=== PATIENT | male | born 1945 | race Caucasian/White ===

== ENCOUNTER 2022-07-08 15:41 | Inpatient (IN) | payer MEDICARE, MEDICAID ==
[~2022-07-08] VITALS: Ht 182.9 cm; Wt 69.9 kg
[2022-07-08] MEDS ORDERED: cefTRIAXone 1,000 MG in DEXT 5% MINI-BAG PLUS 50 ML IV ONE (15:50)
[2022-07-08] MEDS ORDERED: ACETAMINOPHEN 650 MG SUPP RC ONE (15:50)
[2022-07-08 15:57] VITALS: BP 127/56
--- NOTE | 2022-07-08 16:30 | NUR ---
77M BIBA from [facility] with c/o of hypoxia today. Per EMS, pt was satting at 88% on 40 FIO2. Upon arrival, pt temp of 103, labored breathing and tachypneic. Dr. Goldsmith made aware. Pt changed into gown, placed on bedside monitor, RT at bedside upon arrival.
[2022-07-08 16:43] LABS: BASOPHILS % (AUTO) 0.1 % (0.0-2.0); EOSINOPHILS % (AUTO) 0.3 % (0.0-4.0); HEMATOCRIT 27.9 % (36-52); HEMOGLOBIN 8.7 g/dL (12.0-18.0); LYMPHOCYTES # (AUTO) 0.4 K/uL (2.0-11.5); LYMPHOCYTES % (AUTO) 2.3 % (20.5-51.1); MEAN CORPUSCULAR HEMOGLOBIN 28 pg (27-31); MEAN CORPUSCULAR HGB CONC 31 g/dL (33-37); MEAN CORPUSCULAR VOLUME 89.5 fL (80-94); MONOCYTES # (AUTO) 0.7 K/uL (0.8-1.0); MONOCYTES % (AUTO) 4.4 % (1.7-9.3); NEUTROPHILS # (AUTO) 15.2 K/uL (1.8-7.7); NEUTROPHILS % (AUTO) 92.9 % (42.2-75.2); PLATELET COUNT (AUTO) 382 K/uL (140-450); RED BLOOD CELL COUNT(AUTO) 3.12 MIL/uL (4.20-6.10); RED CELL DISTRIBUTION WIDTH 17.6 % (11.6-13.7)
--- NOTE | 2022-07-08 16:45 | NUR ---
#18 FR Yo catheter with 10 ml utilizing sterile technique. No return of urine noted. Bedside drainage bag placed below level of bladder. Pt tolerated procedure well.
[2022-07-08] MEDS ORDERED: cefTRIAXone 1,000 MG VIAL ONE (16:52)
[2022-07-08 17:01] LABS: WHITE BLOOD COUNT (AUTO) 16.4 K/uL (4.8-10.8)
[2022-07-08 17:32] VITALS: BP 91/52
[2022-07-08 17:37] LABS: ALBUMIN 2.6 g/dL (3.4-5.0); ANION GAP 13.8 (8-16); ASPARTATE AMINOTRANSFERASE 22 U/L (15-37); CARBON DIOXIDE 26.4 mmol/L (21-32); CHLORIDE 103 mmol/L (98-107); CREATININE 1.2 mg/dL (0.6-1.3); GLUCOSE 146 mg/dL (74-106); POTASSIUM 5.2 mmol/L (3.5-5.1); SODIUM SERUM 138 mmol/L (136-145); TOTAL BILIRUBIN 0.4 mg/dL (0.0-1.0); UREA NITROGEN, BLOOD 41 mg/dL (7-18)
[2022-07-08] MEDS ORDERED: DOCUSATE SODIUM 100 MG GELCAP PO PRN (17:45)
[2022-07-08] MEDS ORDERED: ONDANSETRON 4 MG/2 ML VIAL IVP PRN (17:45)
[2022-07-08] MEDS ORDERED: ZOLPIDEM 10 MG TAB PO PRN (17:45)
[2022-07-08] MEDS ORDERED: SODIUM ZIRCONIUM CYCLOSILICATE 10 GM POWD.PACK PO ONE (17:45)
[2022-07-08] MEDS ORDERED: POTASSIUM CHLORIDE 10 MEQ TABER PO PRN (17:45)
[2022-07-08] MEDS ORDERED: MAG SULF 2000 MG/WATER PREMIX 50 ML IV PRN (17:45)
[2022-07-08] MEDS ORDERED: DEXTROSE 50% 50 ML SYR IVP PRN (17:50)
[2022-07-08] MEDS ORDERED: INSULIN LISPRO SLIDING SCALE 100 UNITS/ML VIAL SUBQ PRN (17:50)
[2022-07-08] MEDS ORDERED: NACL 0.9% 1,000 ML IV ONE (18:55)
[2022-07-08] MEDS ORDERED: DOCU50LI8 GT (19:26)
[2022-07-08] MEDS ORDERED: LISI5TAB18 GT (19:26)
[2022-07-08] MEDS ORDERED: AMIO100T3 GT (19:26)
[2022-07-08] MEDS ORDERED: METO25TA GT (19:26)
[2022-07-08] MEDS ORDERED: ACET-1182 GT (19:26)
[2022-07-08] MEDS ORDERED: LORA-476 GT (19:26)
[2022-07-08] MEDS ORDERED: FAMO20TA13 GT (19:26)
--- NOTE | 2022-07-08 19:30 | NUR ---
ASSUMED CARE OF PT AT THIS TIME. PT IN POSITION OF COMFORT. NO S/S OF DISTRESS NOTED. PT BEING ADMITTED TO ICU. AWAITING TO GIVE REPORT. PER ORDERS PT CURRENTLY GETTING FLUID BOLUS FOR B/P. RE-EVALUATE AFTER BOLUS FOR LEVOPHED. PT ON VENTILATOR AND TRACH. VSS. SEE ASSESSMENTS. WILL CONTINUE TO MONITOR.
[2022-07-08 19:35] VITALS: BP 85/40
--- NOTE | 2022-07-08 20:53 | NUR ---
REPORT CALLED TO HUGO HUNTER WITH FULL RETURNED VERBAL UNDERSTANDING. PT GOING TO ICU 3
--- NOTE | 2022-07-08 20:55 | NUR ---
TRANSPORTED PATIENT ON VENTILATOR WITH AMBU BAG FROM ER TO ICU BED 3. ONCE IN ICU PLUGGED PATIENTS VENT BAG INTO RED OUTLET, WITH AIR AND O2 CONNECTED AT THE FLOWMETER. PATIENT STABLE AT TIME OF TRANSPORT SATING 98%.
--- NOTE | 2022-07-08 21:00 | NUR ---
Patient will be admitted to [facility]. Admited to ICU. Will go to room 3. Belongings list completed. Report to HIMA HUNTER.
[2022-07-08 21:10] LABS: APPEARANCE,URINE HAZY (CLEAR); BILIRUBIN,URINE NEGATIVE (NEGATIVE); BLOOD, URINE 1+ (NEGATIVE); COLOR,URINE YELLOW (YELLOW); LEUKOCYTE ESTERASE ,URINE 3+ (NEGATIVE); NITRITE, URINE NEGATIVE (NEGATIVE); PH,URINE >=9.0 (5.0-9.0); UGLUCOSE NEGATIVE (NEGATIVE)
--- NOTE | 2022-07-08 21:10 | NUR ---
RECEIVED VIVIANA VANESSA ACCOMPANIED PER RESPIRATORY THERAPIST, AN RN AND AN EMT. PT IS NON RESPONSIVE AND UNABLE TO ASSISTIN HIS TRANSFER TO THE ICU BED. PT IS VERY RIGID AND HE IS CONTRACTED ON GIL UPPER ARMS.PT IS TRACH TO VENT WITH CURRENT SETTINGS FIO2 100%, TV 350,RATE 12 AND PEEP 5.HE HAS A PEG TUBE IN P;EDWIN BUT NO FEEDING. HE HAS A JIMENES CATH 18 FR; INSERTED IN THE ED. HE HAS BEEN CONNECTED TO THE BEDSIDE MONITOR AND HIS VITALS [id number]/76,,P 66, [id number]% AND RESP 16. PT HAS 2 IV ACCESSES IN HANDS GIL. ONE 20 GAUGE IN THE RIGHT HAND AND A 22GAUGE IN THE LEFT . HE'S GIVEN A COMPLETE BATH AND GOWN CHANGED
[2022-07-08 21:28] LABS: WBC,URINE 20-60 /HPF (0-5)
[2022-07-08 21:29] LABS: TRIPLE PHOSPHATE CRYSTAL,UR 0-10 /HPF (None Seen)
[2022-07-08 21:30] VITALS: BP 98/41
[2022-07-08 22:00] VITALS: BP 104/54
[2022-07-08] MEDS: PIPERACILLIN/TAZOBACTAM 2.25 GM in DEXTROSE 5% 50 ML IV SCH (22:00)
[2022-07-08] MEDS: BLOOD GLUCOSE MONITORING 1 DEV DEV FS SCH (22:00)
[2022-07-08] MEDS: ACETAMINOPHEN 325 MG TAB PO PRN (22:09)
[2022-07-08] MEDS ORDERED: PIPERACILLIN/TAZOBACTAM 2.25 GM VIAL IV ONE (22:11)
[2022-07-08 23:00] VITALS: BP 93/51
[2022-07-09] VITALS (27 sets, daily range): BP systolic 82–167; BP diastolic 41–92
[2022-07-09] MEDS ORDERED: AMIODARONE 150 MG in DEXTROSE 5% 100 ML IV ONE (04:40)
--- NOTE | 2022-07-09 04:40 | NUR ---
RECEIVED CALL FORM [facility] INQUIRING WHATS GOING ON WITH MR. BENITEZ. I REPLIED ' I JUST SUCTIONED HIIM AND GAVE HIM ORAL CARE. SHE SAID HE'S IN VTACH. CALLED A CODE PT LOST HIS PULSE. RT AT THE BEDSIDE PLACED PT ON THE BACK BOAR AND ADMINISTERED 6COMPRESSION. PREPARING TO SHOCK PT , BUT HE REGAINED HIS PULSE. HE REMAINS IN V TACH WITH AF. DR. BUTLER FROM ER REPONDED TO THE CODE AND BERNARD MURPHY RN. SHE PLACED ANOTHER IV IN THE PT LOWER WRIST ON THE RIGHT. PT CONTINUED IN V TACH BUT WITH A PULSE. HE WAS GIVEN A BOLUS OF AMIODARONE.IVP. LABS WERE CHECKED AND PT WAS ALSO GIEN 15 MG CARDIZEM IVP. A AMIODARONE GTT WAS PREPARED AND HUNG. AT O600 PT HEART DROP TO 50 ;AMIODARONE WAS DC'D. CALL PLACED TO DR. GUNN. DR GUNN CALLED BACK AMD SAID TO CONTINUE THE AMIODARONE BECAUSE THE HEART RATE WENT UP TO 97. His CT of the head reveals negative CT of the brain. Hand x-ray shows worsening right hand cellulitis with proximal extension to the wrist and distal forearm, advanced osteoarthrosis of fifth DIP joint and early second to fifth interphalangeal arthrosis. Chest x-ray reveals mild right lung base, patchy opacity, which may represent atelectasis versus infiltrate. IMPRESSION AND PLAN: A 50-year-old male, denies IV drug abuse or injecting himself, no reported diabetes, presents now with a right dorsum hand abscess with rising leukocytosis. The patient is on IV antibiotics and no seizures at the moment. The x-rays of the hand noted. Initially, I had recommended the patient be transferred to a hand surgeon, but as usual, this is a complicated transfer process and this is a surgical emergency situation. Although I explained to the patient I am not a hand surgeon, I did offer incision and drainage of the right hand. I would still recommend transfer to a higher level of care at the soonest possibility, but for now, I am willing to incise and drainage the hand to control sepsis for now. Risks, benefits and alternatives of the procedure explained and all questions answered. They have been unable to get in a peripheral IV on the patient as well too; if necessary, I have offered a central line placement as well. Unable to get a PICC line in a timely fashion and ICU nurses have tried individually to place a peripheral IV in the left hand unsuccessfully. Risks, benefits and alternatives of the surgery were explained and all questions answered. Addendum: 07/10/22 at 1936 by Agency 02 RN RN my note on patient stopped at the heart rate went up to 97.the bottom half of the note was already on the computer and was attached ro my note when I relocated my note after losing it multiple times. ERIC.
--- NOTE | 2022-07-09 04:40 | NUR ---
DURING ROUNTINE VENT CHECK OF PT, PT ENTERED VTACH, AND BECAME PULSELESS, I PRESSED THE CODE BLUE BUTTON, AND STARTED COMPRESSIONS, AFTER 30 SECS, THE PT BEGAN TO MOVE AND ROSC WAS ACHIEVED DR. BUTLER ARRIVED,
[2022-07-09] MEDS ORDERED: AMIODARONE 450 MG in DEXTROSE 5% 250 ML IV SCH (04:41)
[2022-07-09] MEDS ORDERED: AMIODARONE 150 MG/3 ML VIAL IV ONE ×2 (04:51→04:59)
[2022-07-09] MEDS ORDERED: AMIODARONE 450 MG/9 ML VIAL IV ONE (04:59)
[2022-07-09] MEDS: PIPERACILLIN/TAZOBACTAM 2.25 GM in DEXTROSE 5% 50 ML IV SCH ×3 (05:00→21:03)
--- NOTE | 2022-07-09 05:00 | NUR ---
TEXT MS SENT TO DR. GARCIA ABOUT PT'S CONDITION. MADE AN ATTEMPT TO CONTACT FRANCISCO RAI BUT THE MAIL BOX WAS FULL.
[2022-07-09] MEDS ORDERED: DILTIAZEM 25 MG/5 ML VIAL IVP ONE (05:06)
[2022-07-09] MEDS ORDERED: PIPERACILLIN/TAZOBACTAM 2.25 GM VIAL IV ONE (05:26)
[2022-07-09] MEDS ORDERED: PHENYLEPHRINE 10 MG/ML VIAL ONE (05:32)
[2022-07-09 06:27] LABS: HEMATOCRIT 26.2 % (36-52); HEMOGLOBIN 8.3 g/dL (12.0-18.0); MEAN CORPUSCULAR HEMOGLOBIN 29 pg (27-31); MEAN CORPUSCULAR HGB CONC 32 g/dL (33-37); MEAN CORPUSCULAR VOLUME 90.4 fL (80-94); PLATELET COUNT (AUTO) 360 K/uL (140-450); RED CELL DISTRIBUTION WIDTH 17.4 % (11.6-13.7)
--- NOTE | 2022-07-09 07:15 | NUR ---
RECEIVED BEDSIDE REPORT FROM METAL TANK BUILDER AAMIR RN. PT IS SLEEPING. A FIB. TRACH TO VENT A/C PRVC 100%, VT 300, RR 16, PEEP 5. PERIPHERAL IV TO RT WRIST 20G AND RT HAND 22G, RUNNING AMIODARONE @ 1.0 MG/MIN, IVAN AT 100MCG/MIN. JIMENES IN PLACE, URINE CLEAR AND BAKARI. G TUBE IN PLACE, CLAMPED. SKIN SEE WOUND ASSESSMENT. BE TO LOWEST POSITION, HOB ELEVATED, CALL LIGHT WITHIN REACH, WILL CONTINUE TO MONITOR.
--- NOTE | 2022-07-09 07:30 | NUR ---
REPORT GIVEN TO JENI FOR CONTINUITY OF CARE.
[2022-07-09] MEDS: BLOOD GLUCOSE MONITORING 1 DEV DEV FS SCH ×4 (08:01→21:02)
[2022-07-09 08:25] LABS: LYMPHOCYTES % (MANUAL) 11 % (20-46); MONOCYTES % (MANUAL) 3 % (5-12)
--- NOTE | 2022-07-09 09:00 | NUR ---
PATIENT HAS BEEN SCREENED AND CATEGORIZED HIGH NUTRITION RISK. PATIENT WILL BE SEEN WITHIN 1-2 DAYS OF ADMISSION. 07/08/22-07/10/[address] REFERRAL RECEIVED FOR PRESSURE INJURY AND DIABETES EDUCATION
--- NOTE | 2022-07-09 09:00 | NUR ---
DR JOSE VAZQUEZ AT BEDSIDE. UPDATED PT INFORMATION. ORDERED PICC LINE INSERTION, D5 NS @100 MLS/HR, VANCOMYCIN.
[2022-07-09] MEDS ORDERED: VANCOMYCIN PER PHARMACY MC PRN (09:05)
[2022-07-09] MEDS: PHENYLEPHRINE 20 MG in NACL 0.9% 250 ML IV PRN ×3 (09:26→16:53)
[2022-07-09] MEDS: DEXT 5% /NACL 0.9% 1,000 ML IV SCH ×2 (09:29→18:59)
--- NOTE | 2022-07-09 09:50 | NUR ---
DR ROME WANTS TO START WEANING FIO2. PT IS NOT ON 80% SATING 98%. WILL CONTINUE TO WEAN AND MONITOR. NO DISTRESS NOTED
--- NOTE | 2022-07-09 10:00 | NUR ---
DR WILD VAZQUEZ AT BEDSIDE. UPDATED PT INFORMATION. ORDERED STARTED TUBE FEEDING PER DIETITIAN RECOMMENDATION.
[2022-07-09 10:07] LABS: ANION GAP 10.6 (8-16); CARBON DIOXIDE 28.6 mmol/L (21-32); CHLORIDE 106 mmol/L (98-107); CREATININE 0.9 mg/dL (0.6-1.3); GLUCOSE 87 mg/dL (74-106); POTASSIUM 4.2 mmol/L (3.5-5.1); SODIUM SERUM 141 mmol/L (136-145); UREA NITROGEN, BLOOD 34 mg/dL (7-18)
--- NOTE | 2022-07-09 10:25 | NUR ---
TO GET THE CONSENT FOR PICC LINE INSERTION. CALLED TWICE INTERACTIVE MEDIA DIRECTOR BASED ON THE FACE SHEET. FRANCISCO RAI / [phone]. NO ONE ANSWERED CALL. VOICE BOX IS FULL, UNABLE TO LEAVE THE MESSAGE. HAD DR ROME AND DR GARCIA SIGN THE PICC LINE INSERTION CONSENT.
--- NOTE | 2022-07-09 10:39 | NUR ---
07/09/21 RD INITIAL ASSESSMENT COMPLETED.PLEASE REFER TO NUTRITION ASSESSMENT UNDER CARE ACTIVITY FOR ESTIMATED NUTRITIONAL NEEDS. 1. RECOMMEND GLUCERNA 1.2 SOFI WITH A GOAL RATE OF 60 ML/HR WITH LAWRENCE BID FOR WOUND HEALING. -START AT 20 ML/HR AND INCREASE BY 20 ML Q4H UNTIL GOAL RATE IS REACHED. -FWF 180 ML Q6H OR PER MD. THIS WILL PROVIDE 1440 ML VOLUME, 1728 KCAL, AND 86.4 GRAMS OF PROTEIN. WITH LAWRENCE BID (160 KCAL, 5 GRAMS PRO), THIS WILL MEET 100% OF ESTIMATED ENERGY NEEDS; ADEQUATE. 2. MONITOR NPO STATUS. 3. RD TO FOLLOW-UP 2-3 DAYS, HIGH RISK MILLIE REDDY RD
[2022-07-09] MEDS: VANCOMYCIN HCL 1.25 GM in DEXTROSE 5% 250 ML IV SCH (10:59)
--- NOTE | 2022-07-09 13:54 | NUR ---
RECEIVED ON A OleryAPE R860 VENTILATOR PLUGGED INTO RED OUTLET TOLERATING WELL WITHOUT ADVERSE REACTIONS NOTED TO A ANDREYLEY #6 AIRWAY SECURED WITH A TRACH TIE CUFF PRESSURE CHECKED NOTED AMBU BAG AT BEDSIDE GOOD CHEST RISE DEEP TRACHEAL SUCTION X 3 FOR COPIOUS SEMI THICK TO THIN YELLOW SECRETIONS AIRWAY PATENT INCREASED MECHANICAL Vt TO 475ml (470ml=6ml/kg) REVIEWED B/P SATURATION 100% ON FIO2 OF 80% PEEP 5cmH2O TITRATED FIO2 TO 70% INCREASED PEEP TO 7cmH20; WILL TREND FIO2 AND PEEP TO ARDS PROTOCOL
--- NOTE | 2022-07-09 17:13 | NUR ---
STABLE GOOD CHEST RISE DEEP TRACHEAL SUCTION X 2 FOR COPIOUS THIN YELLOW SECRETIONS AIRWAY PATENT SATURATION 99% ON FIO2 OF 70% PEEP 7cmH2O TITRATED FIO2 TO 60% INCREASED PEEP TO [id number] (ARDS PROTOCOL) JENI/RN NOTIFIED
--- NOTE | 2022-07-09 18:05 | NUR ---
BEDSIDE PICC LINE INSERTED VIA PICC LINE NURSE PER MD ORDER. PT TOLERATED WELL. CXR CONFIRMED PLACEMENT.
--- NOTE | 2022-07-09 19:27 | NUR ---
ENDORSED TO MARKET BASKET MAKER BERNARD HUNTER FOR CONTINUITY OF CARE. ALL QUESTIONS ANSWERED.
--- NOTE | 2022-07-09 19:30 | NUR ---
TRANSFER OF CARE FROM DAY SHIFT, REPORT RECEIVED FROM JENI Ribeiro RN. PATIENT RECIEVED IN BED, AWAKE, ALERT AND MOVING LOWER EXTREMITIES. PATIENT DOES NOT APPEAR TO BE IN DISTRESS. PATIENT HAS TRACH AND DEPENDENT ON VENT FOR RESPIRATORY SUPPORT. CURRENT VENT SETTINGS ARE: AC/PRVC, FIO2=60, HZ=039, RATE=12, PEEP=5. PATIENT HAS THE FOLLOWING MEDICATIONS CURRENTLY INFUSING: AMIODARONE 450MG AT A RATE OF 0.5MG/HR, IVAN-SYNEPHRINE 20MG AT A RATE OF 50MG/MIN AND IV FLUIDS (D5NS) AT A RATE OF 100 ML/HR . CURRENT VITAL SIGNS AT START OF SHIFT: TEMP=99.1F, HR=72, R=15, O2 YZM=7371, BC=104/62. PATIENT HAS G-TUBE AND IS CURRENTLY ON TUBE FEEDING, GLUCERNA 1.2 AT A RATE OF 40ML/HR. HAS JIMENES IN PLACE. WILL CONTINUE TO MONITOR PATIENT.
--- NOTE | 2022-07-09 20:00 | NUR ---
RT AT BEDSIDE
--- NOTE | 2022-07-09 21:45 | NUR ---
DR. MARTINEZ (INFECTIOUS DISEASE) AT BEDSIDE, CONTINUE CURRENT TREATMENT PLAN, NEEDS SPUTUM CULTURE
--- NOTE | 2022-07-09 23:20 | NUR ---
RT AT BEDSIDE
[2022-07-09] MEDS: LORazepam 2 MG/ML VIAL IVP PRN (23:33)
--- NOTE | 2022-07-09 23:45 | NUR ---
PHONE CALL PLACED TO MD FOR ORDER FOR SEDATION; PATIENT WITH AFIB, TACHYCARDIA, TACHYPNEA.
--- NOTE | 2022-07-09 23:46 | NUR ---
RECEIVED CALL BACK FROM DR. ROME, NEW ORDERS FOR PROPOFOL AND FENTANYL.
[2022-07-09] MEDS ORDERED: PROPOFOL 1000 MG/100 ML PREMIX 100 ML IV ONE (23:47)
[2022-07-09] MEDS ORDERED: PROPOFOL 1000 MG/100 ML PREMIX 100 ML IV PRN (23:50)
[2022-07-10] VITALS (31 sets, daily range): BP systolic 81–153; BP diastolic 38–92
--- NOTE | 2022-07-10 | NUR ---
DR. MARTINEZ AT THE BEDSIDE SSESSING PT.
[2022-07-10] MEDS ORDERED: fentaNYL citrate 0.05 MG/ML VIAL ONE ×2 (00:22→00:26)
[2022-07-10] MEDS: fentaNYL citrate 1 MG in NACL 0.9% 80 ML IV PRN ×2 (00:44→21:16)
--- NOTE | 2022-07-10 04:38 | NUR ---
RT AT BEDSIDE, SETTINGS TO VENT CHANGED; PATIENT NOW WITH PEEP OF 8
[2022-07-10] MEDS ORDERED: AMIODARONE 450 MG/9 ML VIAL IV ONE (04:42)
[2022-07-10] MEDS: PIPERACILLIN/TAZOBACTAM 2.25 GM in DEXTROSE 5% 50 ML IV SCH ×3 (04:59→21:00)
[2022-07-10] MEDS: DEXT 5% /NACL 0.9% 1,000 ML IV SCH (05:35)
[2022-07-10] MEDS: PHENYLEPHRINE 20 MG in NACL 0.9% 250 ML IV PRN (05:39)
[2022-07-10 06:10] LABS: ANION GAP 8.5 (8-16); CARBON DIOXIDE 28.1 mmol/L (21-32); CHLORIDE 112 mmol/L (98-107); CREATININE 0.7 mg/dL (0.6-1.3); GLUCOSE 140 mg/dL (74-106); POTASSIUM 3.6 mmol/L (3.5-5.1); SODIUM SERUM 145 mmol/L (136-145); UREA NITROGEN, BLOOD 27 mg/dL (7-18)
[2022-07-10] MEDS: BLOOD GLUCOSE MONITORING 1 DEV DEV FS SCH ×4 (06:52→23:56)
--- NOTE | 2022-07-10 07:05 | NUR ---
NOTIFIED DR. ROME REGARDING AMIODARONE DRIP INFUSED FOR 24 HOURS. NEW ORDER TO DISCONTINUE DRIP.
--- NOTE | 2022-07-10 07:15 | NUR ---
TRANSFER OF CARE TO DAY SHIFT, REPORT ENDORSED TO DALE OSORIO
[2022-07-10 07:34] LABS: HEMOGLOBIN 7.1 g/dL (12.0-18.0); RED BLOOD CELL COUNT(AUTO) 2.49 MIL/uL (4.20-6.10)
--- NOTE | 2022-07-10 07:45 | NUR ---
RECEIVED PT SEDATED, TRACH TO VENT SETTINGS AC PRVC TV 475 RATE 12 PEEP 8 FIO2@ 60%. SINUS ANIBAL ON MONITOR. GTUBE INTACT AND PATENT INFUSING GLUCERNA 1.2@60ML/HR WITH FWF 180ML Q6HR. JIMENES CATHETER INTACT AND DRAINING TO BSD. PICC LINE ON RIGHT UPPER ARM INTACT AND PATENT INFUSING PROPOFOL @6MCG/KG/HR, FENTANYL@0.5MCG/KG/HR, IVAN-SYNEPHRINE@50MCG/MIN, AND D5NS@100ML/HR. PERIPHERAL IV ON RIGHT WRIST 20 GAUGE SALINE LOCKED. SAFETY PRECAUTIONS IN PLACE.
[2022-07-10 07:55] LABS: BASOPHILS % (AUTO) 0.2 % (0.0-2.0); EOSINOPHILS % (AUTO) 0.2 % (0.0-4.0); HEMATOCRIT 22.6 % (36-52); LYMPHOCYTES # (AUTO) 0.7 K/uL (2.0-11.5); LYMPHOCYTES % (AUTO) 6.8 % (20.5-51.1); MEAN CORPUSCULAR HEMOGLOBIN 28 pg (27-31); MEAN CORPUSCULAR HGB CONC 31 g/dL (33-37); MEAN CORPUSCULAR VOLUME 90.7 fL (80-94); MONOCYTES % (AUTO) 9.1 % (1.7-9.3); NEUTROPHILS # (AUTO) 9.3 K/uL (1.8-7.7); NEUTROPHILS % (AUTO) 83.7 % (42.2-75.2); PLATELET COUNT (AUTO) 306 K/uL (140-450); WHITE BLOOD COUNT (AUTO) 11.1 K/uL (4.8-10.8)
--- NOTE | 2022-07-10 08:08 | NUR ---
RECEIVED ON A [employer]iant EnergySCAPE R860 VENTILATOR PLUGGED INTO RED OUTLET TOLERATING WELL WITHOUT ADVERSE REACTIONS NOTED TO A RAJESH DCT #6 AIRWAY SECURED WITH A AMBROSE TRACH TIE CUFF PRESSURE CHECKED NOTED AMBU BAG AT BEDSIDE STABLE NO EVIDENCE OF SOB NOTED EQUAL CHEST RISE DEEP TRACHEAL SUCTION FOR MODERATE THIN YELLOW SECRETIONS AIRWAY PATENT SATURATION 100% ON FIO2 OF 60% PEEP 8cmH2O TITRATED FIO2 TO 50% DEVON/RN NOTIFIED OF FIO2 CHANGE
[2022-07-10] MEDS ORDERED: PHENYLEPHRINE 10 MG/ML VIAL IV ONE (09:50)
[2022-07-10] MEDS ORDERED: PHENYLEPHRINE 40 MG in NACL 0.9% 250 ML IV PRN (09:50)
--- NOTE | 2022-07-10 10:17 | NUR ---
SEEN AND EXAMINED BY DR. MANTILLA. NEW ORDER RECEIVED.
[2022-07-10] MEDS: PHENYLEPHRINE 40 MG in NACL 0.9% 250 ML IV PRN ×2 (10:31→23:58)
[2022-07-10] MEDS: AMIODARONE 200 MG TAB PO SCH ×2 (10:32→21:06)
[2022-07-10] MEDS ORDERED: DOCUSATE 100 MG/10 ML UDC GT PRN (10:55)
[2022-07-10] MEDS: VANCOMYCIN HCL 1.25 GM in DEXTROSE 5% 250 ML IV SCH (11:20)
--- NOTE | 2022-07-10 11:25 | NUR ---
STABLE STABLE CHEST RISE NO SUCTIONING REQUIRED AT THIS TIME AIRWAY PATENT
--- NOTE | 2022-07-10 14:20 | NUR ---
STABLE DEEP TRACHEAL SUCTION FOR MODERATE THICK YELLOW WITH BLOOD TINGE SECRETIONS AIRWAY PATENT
--- NOTE | 2022-07-10 17:51 | NUR ---
SEEN AND EXAMINED BY DR. ALVES. PER SAMUEL MARQUEZ TO KEEP AMIODARONE 200 MG GT BID.
--- NOTE | 2022-07-10 19:08 | NUR ---
RECEIVED REPORT FROM DEVON HUNTER FOR CONTINUITY OF CARE.PT IS LYING ON HIS LEFT SIDE WITH HEAD ELEVATED TO 35 DEGREES. HE'S A RASS -3 ON CURRENT SEDATION. HE HAS PROPOFOL 10MCG, FENTANYL 1MCG. HE ALSO HAS IVAN SYNEPHRINE TO MAINTAIN HIS BL ABOVE 90 SYSTOLIC LL INFUSING IN THE JINA PICC LINE. PT IS TRACHED TO VENTILATOR WITH SETTING VC/PRVC FIO2 %, PEEP 8,MTV 475 WITH A RATE OF12. HE HAS A PEG TUBE RECEIVING TUBE FEEDING ; GLUCERNIA 1.2 AT 60CC GOAL AND FREE WATER 125Q 4HOURS. 35%. TUBE FEEDING OFF NOW OWING TO A HIGH RESIDUAL. HIS RIGHT HAND IS SWOLLEN R/T INFILTRATED IV WARM COMPRESS IN PLACE. HE HAS A JIMENES DRAINING A MODERATE AMT OF DARK YELLOW CLEAR URINE.
--- NOTE | 2022-07-10 19:27 | NUR ---
ENDORSED TO DIRECTOR OF PLANT OPERATIONS NURSE ERIC FOR CONTINUITY OF CARE.
[2022-07-11] VITALS (29 sets, daily range): BP systolic 110–145; BP diastolic 50–76
--- NOTE | 2022-07-11 00:03 | NUR ---
BLOOD GLUCOSE 79, TUBE FEEDING RESUMED.
[2022-07-11] MEDS: ACETAMINOPHEN 325 MG TAB PO PRN (00:34)
--- NOTE | 2022-07-11 03:56 | NUR ---
AM CARE ADMINISTERED. THE IV IN THE RIGHT HAND CAME OUT; BANDAID APPLIED TO THE SITE. PT VERY STIFF AND RIGIDON BEING TURNED.
--- NOTE | 2022-07-11 04:41 | NUR ---
0415 LOWERED FIO2 TO 30%. SATS 98%
[2022-07-11] MEDS: PIPERACILLIN/TAZOBACTAM 2.25 GM in DEXTROSE 5% 50 ML IV SCH ×3 (05:34→20:40)
[2022-07-11] MEDS: BLOOD GLUCOSE MONITORING 1 DEV DEV FS SCH ×3 (05:39→17:55)
[2022-07-11 06:20] LABS: ANION GAP 8.8 (8-16); CARBON DIOXIDE 30.4 mmol/L (21-32); CHLORIDE 113 mmol/L (98-107); CREATININE 0.6 mg/dL (0.6-1.3); GLUCOSE 100 mg/dL (74-106); POTASSIUM 4.2 mmol/L (3.5-5.1); SODIUM SERUM 148 mmol/L (136-145); UREA NITROGEN, BLOOD 35 mg/dL (7-18)
--- NOTE | 2022-07-11 07:22 | NUR ---
SBAR REPORT RECEIVED FROM ERIC HUNTER, ALL CARES ASSUMED.
[2022-07-11] MEDS: AMIODARONE 200 MG TAB PO SCH ×2 (08:35→20:38)
[2022-07-11 09:04] LABS: BASOPHILS % (AUTO) 0.7 % (0.0-2.0); EOSINOPHILS # (AUTO) 0.4 K/uL (0-0.4); HEMATOCRIT 22.4 % (36-52); LYMPHOCYTES # (AUTO) 0.8 K/uL (2.0-11.5); LYMPHOCYTES % (AUTO) 13.7 % (20.5-51.1); MEAN CORPUSCULAR HEMOGLOBIN 28 pg (27-31); MEAN CORPUSCULAR HGB CONC 31 g/dL (33-37); MEAN CORPUSCULAR VOLUME 90.4 fL (80-94); MONOCYTES # (AUTO) 0.6 K/uL (0.8-1.0); MONOCYTES % (AUTO) 10.2 % (1.7-9.3); NEUTROPHILS % (AUTO) 68.4 % (42.2-75.2); PLATELET COUNT (AUTO) 294 K/uL (140-450); RED BLOOD CELL COUNT(AUTO) 2.48 MIL/uL (4.20-6.10); RED CELL DISTRIBUTION WIDTH 17.7 % (11.6-13.7); WHITE BLOOD COUNT (AUTO) 5.8 K/uL (4.8-10.8)
[2022-07-11] MEDS: VANCOMYCIN HCL 1.25 GM in DEXTROSE 5% 250 ML IV SCH (10:58)
[2022-07-11] MEDS: PHENYLEPHRINE 40 MG in NACL 0.9% 250 ML IV PRN (14:32)
--- NOTE | 2022-07-11 15:09 | NUR ---
DC PLANNIN YRS OLD MALE PATIENT WAS ADMITTED FROM [facility] WITH A DX OF ACUTE RESP DISTRESS. 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 CXR SHOWED PNEUMONIA. RAPID COVID TEST NEGATIVE. ADMINISTERED IVF, IV ABX ZOSYN AND VANCOMYCIN. FENTANYL AND PROPOFOL DRIP. CONSULTED WITH PULMO, ID, AND CARDIO. DC PLAN TO RETURN TO [facility] WHEN STABLE CM TO FOLLOW Addendum: 07/18/22 at 1336 by Mecca Vidal RN DC PLANNING: PATIENT HAS AN ORDER FOR LTAC, FAXED TO [facility] [phone] AND SINCE [facility] CONTRACTED WITH [place] FAXED TO [place] [phone] CM TO FOLLOW Addendum: 07/21/22 at 1403 by Mecca Vidal RN DC PLANNING: PATIENT HAS A DC ORDER TO RETURN TO [facility] FAXED ALL PAPERWORK AND SPOKE WITH MARIANNA AND SHE PROVIDE THE BED #. CAN GO TO ROOM 119A. ARRANGED TRANSPORT WITH [facility] REMOTE SENSING TECHNICIAN TIME 3PM NOTIFIED EXTENSION COURSE COORDINATOR. CM TO FOLLOW
[2022-07-11] MEDS: fentaNYL citrate 1 MG in NACL 0.9% 80 ML IV PRN (15:32)
--- NOTE | 2022-07-11 15:41 | NUR ---
DC PLANNING CLAIRE OUTREACHED TO [facility] AND SPOKE WITH GLADYS, CO ADMIN. GLADYS REPORTS PATIENT IS IN [facility], INITIAL ADMISSION DATE 02/28/22. PATIENT IS TOTAL CARE AT FACILITY. PATIENT IS TRAYC TO VENT AND IS BED BOUND. PATIENT REPORTED TO BE NONVERBAL.GLADYS REPORTS FRANCISCO RAI IS PTS RESPONSIBLE [employer]. PT IS FOLLOWED BY DR. MANTILLA AT FACILITY. GLADYS REPORTS DC PLAN IS FOR PT TO RETURN TO [facility] ONCE MEDICALLY STABLE. CLAIRE ATTEMPTED TO REACH PTS EMERGENCY CONTACT, FRANCISCO RAI, TO CONFIRM INFORMATION GATHERED BY GLADYS, HOWEVER, VOICE MAILBOX FULL. CLAIRE UNABLE TO LEAVE MESSAGE. Addendum: 07/11/22 at 1543 by Rema DIMAS Amended: Links added.
--- NOTE | 2022-07-11 16:20 | NUR ---
BED BATH GIVEN, LINENS AND GOWN CHANGED. PT TOLERATED WELL, VSS.
--- NOTE | 2022-07-11 19:30 | NUR ---
ASSUMED CARE FOR PT.PT APPEARS TO BE RESTING WITH EQUAL RISE AND FALL OF CHEST WALL. NO SIGNS OF RESPIRATORY DISTRESS. RT AT BEDSIDE. IV TO RU ARM OBSERVED AND PATENT. ALL NEEDS MET AT THIS TIME. BED LOCKED IN LOWEST POSITION, SIDE RAILS X2 FOR SAFETY.
--- NOTE | 2022-07-11 19:31 | NUR ---
SBAR REPORT GIVEN TO ESTRELLITA HUNTER, ALL CARES ENDORSED.
--- NOTE | 2022-07-11 22:38 | NUR ---
pt observed with increasing coughing and sputum production. pt suctioned x2's. pt stopped coughing. pt tolerated well, vss. no signs of respiratory distress observed. all needs met at this time.
--- NOTE | 2022-07-11 23:37 | NUR ---
pt cardiac rhythm appears to be in vtach, made aware. ordered stat ekg and amiodarone loading bolus followed by amiodarone 1mg/min. orders carried out.
[2022-07-11] MEDS ORDERED: AMIODARONE 450 MG in DEXTROSE 5% 250 ML IV SCH (23:40)
[2022-07-11] MEDS ORDERED: AMIODARONE 150 MG in DEXTROSE 5% 100 ML IV ONE (23:40)
[2022-07-11] MEDS ORDERED: AMIODARONE 150 MG/3 ML VIAL IV ONE (23:46)
[2022-07-11] MEDS ORDERED: AMIODARONE 450 MG/9 ML VIAL IV ONE (23:46)
[2022-07-12] VITALS (26 sets, daily range): BP systolic 110–144; BP diastolic 56–75
[2022-07-12] MEDS: BLOOD GLUCOSE MONITORING 1 DEV DEV FS SCH ×4 (00:05→17:53)
--- NOTE | 2022-07-12 02:00 | NUR ---
PT APPEARS TO BE RESTING, EYES CLOSED OPENS TO SOUND. EQUAL RISE AND FALL OF CHEST WALL. ALL NEEDS MET AT THIS TIME. BED LOCKED IN LOWEST POSITION, SIDE RAILSX2 FOR SAFETY.
[2022-07-12] MEDS: PIPERACILLIN/TAZOBACTAM 2.25 GM in DEXTROSE 5% 50 ML IV SCH ×3 (04:55→21:00)
[2022-07-12] MEDS ORDERED: PHENYLEPHRINE 10 MG/ML VIAL ONE (05:28)
--- NOTE | 2022-07-12 05:45 | NUR ---
RT AT BEDSIDE.
[2022-07-12 05:50] LABS: BASOPHILS % (AUTO) 0.3 % (0.0-2.0); EOSINOPHILS # (AUTO) 0.4 K/uL (0-0.4); EOSINOPHILS % (AUTO) 5.7 % (0.0-4.0); HEMATOCRIT 22.1 % (36-52); LYMPHOCYTES # (AUTO) 0.8 K/uL (2.0-11.5); LYMPHOCYTES % (AUTO) 11.9 % (20.5-51.1); MEAN CORPUSCULAR HEMOGLOBIN 29 pg (27-31); MEAN CORPUSCULAR HGB CONC 32 g/dL (33-37); MEAN CORPUSCULAR VOLUME 89.7 fL (80-94); MONOCYTES # (AUTO) 0.6 K/uL (0.8-1.0); MONOCYTES % (AUTO) 8.5 % (1.7-9.3); NEUTROPHILS % (AUTO) 73.6 % (42.2-75.2); PLATELET COUNT (AUTO) 310 K/uL (140-450); RED BLOOD CELL COUNT(AUTO) 2.46 MIL/uL (4.20-6.10); RED CELL DISTRIBUTION WIDTH 17.2 % (11.6-13.7); WHITE BLOOD COUNT (AUTO) 6.8 K/uL (4.8-10.8)
[2022-07-12] MEDS: PHENYLEPHRINE 40 MG in NACL 0.9% 250 ML IV PRN (05:51)
[2022-07-12 06:08] LABS: HEPATITIS A ANTIBODY IGM Negative (Negative); HEPATITIS B CORE AB TOTAL Negative (Negative); HEPATITIS B SURFACE ANTIBODY Non Reactive (.); HEPATITIS B SURFACE ANTIGEN Negative (Negative)
--- NOTE | 2022-07-12 07:10 | NUR ---
RECEIVED PT ON PRVC 475,RR12,+7,30%. VENT WHEELS ARE LOCKED, PLUGGED INTO RED OUTLET, AMBUBAG AT BEDSIDE, ALARMS ARE SET AND AUDIBLE. PT RESTING COMFORTABLY, NO DISTRESS NOTED. WILL CONTINUE TO MONITOR.
--- NOTE | 2022-07-12 07:20 | NUR ---
SBAR REPORT RECEIVED FROM PRADEEP HUNTER, ALL CARES ASSUMED. PT RESTING WITH EYES CLOSED. TRACH TO VENT, AC/PRVC12, 30%, 8. JIMENES CATHETER DRAINING TO GRAVITY. BED IN LOW, LOCKED POSITION.
[2022-07-12 08:18] LABS: ANION GAP 11.1 (8-16); CARBON DIOXIDE 28.7 mmol/L (21-32); CHLORIDE 109 mmol/L (98-107); CREATININE 0.6 mg/dL (0.6-1.3); GLUCOSE 97 mg/dL (74-106); POTASSIUM 3.8 mmol/L (3.5-5.1); SODIUM SERUM 145 mmol/L (136-145); UREA NITROGEN, BLOOD 26 mg/dL (7-18)
--- NOTE | 2022-07-12 09:35 | NUR ---
WOUND CARE EVALUATION NOTE: SKIN ASSESSMENT DONE WITH PRIMARY RN BEHZAD ON THIS 77 Y/O PT ADMITTED FROM SNF WITH INITIAL DXRESPIRATORY DISTRESS. PAST MEDICAL HX INCLUDES CHRONIC RESPIRATORY FAILURE, VENT DEPENDENT, DYSPHAGIA AND G-TUBE DEPENDENT, COPD. PT. ADMITTED WITH PRESSURE INJURY. ALL ABOVE INFORMATION OBTAINED FROM ADMISSION H&P. PT SKIN IS WARM AND DRY, UPPER EXTREMITIES +1 EDEMA . BLE NO HAIR GROWTH, LLE +2 EDEMA. DORSAL PEDAL PULSES PRESENT AND NORMAL. CAPILLARY REFILLED < 2 SEC. X 10 TOES. INCONTINENT OF BOWEL. F/C PATENT WITH MODERATE AMOUNT YELLOW COLOR URINE OUT PUT OBSERVED. PLAN OF CARE DISCUSSED WITH PRIMARY RN. INTEGUMENTARY: -ORAL MEMBRANE PINK IN COLOR. LIPS, CHEEKS SKIN DRY, NO OPEN WOUNDS -TRACH SITE AND GT SITE FRANCISCO JAVIER STOMA SKIN DRY AND CLEAN. SKIN INTACT. -ABDOMEN DISTENDED, SOFT -PRESSURE INJURY STAGE 4 TO SACROCOCCYX 2.5X2.5X0.5CM, UNDERMINING FROM 9 OCLOCK TO 4 OCLOCK WITH DEEPEST TO 3 OCLOCK 3 CM, WOUND BED 50% RED GRANULATION TISSUE AND 50% OF DTI, IN DARK PURPLE COLOR, NO ODOR, FRANCISCO JAVIER-WOUND SKIN MOIST, DENUDED OLD HEALED SCAR TISSUE, FURTHER DAMAGE INDICATED RECOMMENDATIONS: -APPLY HYDRAGUARD ALL LIMBS AND TRUNK OF BODY, B/L GROINS, MEDIAL THIGHS TO SCROTAL BID AND PRN IF SOILING -CLEANSE SACRALCOCCYX WITH WOUND CLEANSING SOLUTION AND PACK WOUND BED FROM UNDERMINING WITH THERAHONEY GEL WITH OIL EMULSION DRESSING, COVER WITH DRY DRESSING QD AND PRN IF SOILING -APPLY HEEL PROTECTOR AND OFFLOADING BILATERAL HEELS -POSITIONING: TURN AND REPOSITION PATIENT Q 2H OR SOONER USE PILLOWS TO KEEP BONY PROMINENCES FROM DIRECT CONTACT WITH SURFACES USE REPOSITIONING WEDGES TO PROVIDE 30-DEGREE ANGLE FOR SIDE LYING POSITIONS OFFLOADING OR FOAM DRESSING TO ALL TUBING TO PREVENT MEDICAL DEVICES RELATED PRESSURE INJURY -RE-EVALUATING AND MANAGING INCONTINENCE MONITOR SKIN CONDITION DURING POSITION CHANGE DO NOT MASSAGE REDNESS, BONY PROMINENCES FREQUENT FRANCISCO JAVIER-CARE AND PROVIDE BARRIER CREAMS PRN IF SOILING MOISTURE CONTROL BY OFFER BED WATKINS/URINAL /ABSORBENT PAD TO WICK AND HOLD MOISTURE. MAY OBTAIN ORDER FOR FLEX SEAL, RECTAL BAG OR JIMENES CATHETER PER PHYSICIAN ORDER UNLESS OTHERWISE CONTRAINDICATED KEEP SKIN DRY AND PROTECT FROM FRICTION -MANAGE FRICTION/SHEAR/MOBILITY KEEP HOB AT THE LOWEST LEVEL OF ELEVATION NO MORE THAN 30 DEGREES UNLESS OTHERWISE CONTRAINDICATED USE LIFT SHEET OR TRANSFER DEVICE TO MOVE PATIENT AND PREVENT LATERAL SHEER. CONSIDER TRAPEZE IF APPROPRIATE PROTECT HEELS, ELBOWS BONY PROMINENCES WITH SKIN BERRIES OR FOAM DRESSING IF EXPOSED TO FRICTION OFFLOAD BILATERAL HEELS BY PLACING PILLOWS UNDER CALVES AT ALL TIMES, UNLESS OTHERWISE CONTRAINDICATED -PRESSURE REDISTRIBUTION SURFACE THERAPY TITA ISOFLEX MEHDI MATTRESS -NUTRITION: PLEASE FOLLOW RD RECOMMENDATIONS AND OFFER NUTRITION SUPPLEMENTS IF ORDERED.
[2022-07-12] MEDS: fentaNYL citrate 1 MG in NACL 0.9% 80 ML IV PRN ×2 (11:18→22:48)
--- NOTE | 2022-07-12 11:44 | NUR ---
BED BATH COMPLETE, LINENS AND GOWN CHANGED. PT TOLERATED TURNING, VSS. LARGE AMOUNT OF SECRETIONS SUCTIONED.
[2022-07-12] MEDS: THERAHONEY GEL 42.5 GM TP SCH (13:09)
[2022-07-12] MEDS: HYDRAGUARD CREAM TP SCH (13:09)
--- NOTE | 2022-07-12 16:00 | NUR ---
07/12/22 RD FOLLOW UP COMPLETED PLEASE REFER TO NUTRITION ASSESSMENT UNDER CARE ACTIVITY FOR ESTIMATED NUTRITIONAL NEEDS. 1. RECOMMEND GLUCERNA 1.2 @65 ML/HR TOLERATED, FWF 180 Q6H, WITH LAWRENCE BID 2. RECOMMEND ADDING PROSOURCE BID - PROSOURCE BID WILL PROVIDE 120 KCAL AND 30 GRAMS PROTEIN - CONTINUE LAWRENCE BID, WILL PROVIDE 160 KCAL AND 5 GRAMS PROTEIN - WITH PROSOURCE BID AND LAWRENCE BID, PT WILL RECEIVE 2192 KCAL, 128 G PROTEIN, MEETING 90% ESTIMATED CALORIE NEEDS AND 100% ESTIMATED PROTEIN NEEDS. 3. RD TO FOLLOW-UP 3-5 DAYS, MODERATE RISK REVIEWED BY EDUARDA LOCKHART RD Addendum: 07/13/22 at [address] D/C PROSOURCE BID RECOMMENDATION.
--- NOTE | 2022-07-12 19:03 | NUR ---
RECEIVED REPORT FROM AM SHIFT. PATIENT WAS SEEN AND ASSESSED. PATIENT IS TRACH WITH SHILEY SIZE 6 AND SECURED WITH A TRACH TIE. PATIENT IS ON VENTILATOR SUPPORT. VENTILATOR PLUGGED IN RED OUTLET. VENTILATOR ALARMS SET APPROPRIATELY AND AUDIBLE TO ENVIRONMENT. AMBU BAG AT BEDSIDE. HEAD OF BED GREATER THAN 30 DEGREES. NOTICED ADEQUATE BILATERAL CHEST RISE AND FALL. PATIENT IS IN NO RESPIRATORY DISTRESS AT THIS TIME.VENT SETTINGS: AC/PRVC RR 12, Vt 475, PEEP 5, FiO2 30% WITH SPO2 OF 100%. BILATERAL BREATH SOUNDS ON AUSCULTATION; UPPER LOBES: COARSE, LOWER LOBES: COARSE. SUCTION MODERATE AMOUNT OF WHITE FROTHY THIN SECRETIONS FROM TRACH TUBE.
--- NOTE | 2022-07-12 19:20 | NUR ---
SBAR REPORT GIVEN TO BERNARD HUNTER, ALL CARES ENDORSED.
--- NOTE | 2022-07-12 19:30 | NUR ---
TRANSFER OF CARE FROM DAY SHIFT, REPORT RECEIVED FROM JANET Yadav RN. PATIENT RECIEVED IN BED, AWAKE, ALERT AND MOVING LOWER EXTREMITIES. PATIENT DOES NOT APPEAR TO BE IN DISTRESS. PATIENT HAS TRACH AND DEPENDENT ON VENT FOR RESPIRATORY SUPPORT. CURRENT VENT SETTINGS ARE: AC/PRVC, FIO2=30, BG=130, RATE=14, PEEP=7. PATIENT HAS THE FOLLOWING MEDICATIONS CURRENTLY INFUSING: PROPOFOL 1000MG AT RATE OF MCG/KG/MIN, AMIODARONE 450MG AT A RATE OF 0.5MG/HR, IVAN-SYNEPHRINE 20MG AT A RATE OF 20MG/MIN, FENTANYL 1MG AT 1MCG/KG/HR, AND IV FLUIDS (D5NS) AT A RATE OF 100 ML/HR . CURRENT VITAL SIGNS AT START OF SHIFT: TEMP=99.1F, HR=72, R=15, O2 LYF=8288, VI=681/62. PATIENT HAS G-TUBE AND IS CURRENTLY ON TUBE FEEDING, GLUCERNA 1.2 AT A RATE OF 40ML/HR. HAS JIMENES IN PLACE. WILL CONTINUE TO MONITOR PATIENT.
--- NOTE | 2022-07-12 21:45 | NUR ---
RT AT BEDSIDE
--- NOTE | 2022-07-12 22:00 | NUR ---
PATIENT LYING IN BED, TV MONITOR ON, PATIENT IS EASISLY AROUSABLE
[2022-07-13] VITALS (25 sets, daily range): BP systolic 95–142; BP diastolic 52–86
[2022-07-13] MEDS: BLOOD GLUCOSE MONITORING 1 DEV DEV FS SCH ×4 (00:02→17:06)
--- NOTE | 2022-07-13 00:08 | NUR ---
AMIODARONE DRIP STOPPED PER MD ORDERS. PATIENT TO START PO AMIODARONE
--- NOTE | 2022-07-13 00:15 | NUR ---
ABG CRITICAL RESULTS WERE REPORTED TO DR. CORBIN. READ BACK CONFIRMED. XRAY RESULTS WERE REPORTED. [facility] ORDER GIVEN TO RN BY DR. CORBIN.
[2022-07-13] MEDS: HYDRAGUARD CREAM TP SCH ×2 (01:00→12:58)
[2022-07-13] MEDS ORDERED: PHENYLEPHRINE 10 MG/ML VIAL ONE (03:02)
[2022-07-13] MEDS: PHENYLEPHRINE 40 MG in NACL 0.9% 250 ML IV PRN (05:29)
[2022-07-13] MEDS: PIPERACILLIN/TAZOBACTAM 2.25 GM in DEXTROSE 5% 50 ML IV SCH (05:30)
[2022-07-13 06:08] LABS: BASOPHILS % (AUTO) 0.3 % (0.0-2.0); EOSINOPHILS # (AUTO) 0.4 K/uL (0-0.4); EOSINOPHILS % (AUTO) 6.5 % (0.0-4.0); LYMPHOCYTES # (AUTO) 0.9 K/uL (2.0-11.5); MEAN CORPUSCULAR HEMOGLOBIN 29 pg (27-31); MEAN CORPUSCULAR HGB CONC 32 g/dL (33-37); MONOCYTES # (AUTO) 0.5 K/uL (0.8-1.0); NEUTROPHILS % (AUTO) 69.2 % (42.2-75.2); PLATELET COUNT (AUTO) 286 K/uL (140-450); RED BLOOD CELL COUNT(AUTO) 2.36 MIL/uL (4.20-6.10); RED CELL DISTRIBUTION WIDTH 17.2 % (11.6-13.7); WHITE BLOOD COUNT (AUTO) 5.8 K/uL (4.8-10.8)
[2022-07-13 06:17] LABS: HEMOGLOBIN 6.8 g/dL (12.0-18.0)
[2022-07-13 06:22] LABS: ANION GAP 9.9 (8-16); CARBON DIOXIDE 31.7 mmol/L (21-32); CHLORIDE 109 mmol/L (98-107); CREATININE 0.5 mg/dL (0.6-1.3); GLUCOSE 99 mg/dL (74-106); POTASSIUM 3.6 mmol/L (3.5-5.1); SODIUM SERUM 147 mmol/L (136-145); UREA NITROGEN, BLOOD 21 mg/dL (7-18)
--- NOTE | 2022-07-13 07:19 | NUR ---
TRANSFER OF CARE TO DAY SHIFT, REPORT ENDORSED TO DALE BROCK
[2022-07-13] MEDS ORDERED: AMIODARONE 200 MG TAB GT SCH (09:00)
[2022-07-13] MEDS: THERAHONEY GEL 42.5 GM TP SCH (12:59)
[2022-07-13] MEDS ORDERED: AMIODARONE 150 MG in DEXTROSE 5% 100 ML IV SCH (17:30)
[2022-07-13] MEDS: AMIODARONE 450 MG in DEXTROSE 5% 250 ML IV SCH (18:12)
--- NOTE | 2022-07-13 19:30 | NUR ---
CLOSING NOTE PT is awake, drowsy, and follow basic commands, sedation discontinued. About 1640, pt had A-Flutter, Dr. Palomo informed and placed pt on Amio, then pt converted to NSR, ST. Dominik off this AM and SBP has been > 90. PT is getting 1 unit of PRBC r/t HG 6.8. No external bleeding noted. Tolerates feeding at 60 ml/hr with minimal residual. Urine output 520 ml. PT' POA updated on pt's condition via telephone.
--- NOTE | 2022-07-13 19:35 | NUR ---
TRANSFER OF CARE FROM DAY SHIFT, REPORT RECEIVED FROM DALE LESLIE. PATIENT RECIEVED IN BED, AWAKE, ALERT AND MOVING LOWER EXTREMITIES. PATIENT DOES NOT APPEAR TO BE IN DISTRESS. PATIENT HAS TRACH AND DEPENDENT ON VENT FOR RESPIRATORY SUPPORT. CURRENT VENT SETTINGS ARE: AC/PRVC, FIO2=40, FQ=407, RATE=12, PEEP=5. PATIENT HAS THE FOLLOWING MEDICATIONS CURRENTLY INFUSING: AMIODARONE 450MG AT A RATE OF 1MG/HR, IVAN-SYNEPHRINE 20MG AT A RATE OF 20MG/MIN, AND IV FLUIDS (D5NS) AT A RATE OF 5 ML/HR . CURRENT VITAL SIGNS AT START OF SHIFT: TEMP=97.7F, HR=71, R=12, O2 MAM=7040, MX=822/66. PATIENT HAS G-TUBE AND IS CURRENTLY ON TUBE FEEDING, GLUCERNA 1.2 AT A RATE OF 60ML/HR. HAS JIMENES IN PLACE. WILL CONTINUE TO MONITOR PATIENT.
--- NOTE | 2022-07-13 19:50 | NUR ---
TITRATED FiO2 FROM 40% TO 30% WITH SPO2 OF 97%. RN NOTIFIED. PT TOLERATING WELL AT THIS TIME. WILL CONTINUE TO MONITOR PT.
--- NOTE | 2022-07-13 19:51 | NUR ---
RECEIVED REPORT FROM AM SHIFT. PATIENT WAS SEEN AND ASSESSED. PATIENT IS TRACH WITH SHILEY SIZE 6 AND SECURED WITH A TRACH TIE. PATIENT IS ON VENTILATOR SUPPORT. VENTILATOR PLUGGED IN RED OUTLET. VENTILATOR ALARMS SET APPROPRIATELY AND AUDIBLE TO ENVIRONMENT. AMBU BAG AT BEDSIDE. HEAD OF BED GREATER THAN 30 DEGREES. NOTICED ADEQUATE BILATERAL CHEST RISE AND FALL. PATIENT IS IN NO RESPIRATORY DISTRESS AT THIS TIME.VENT SETTINGS: AC/PRVC RR 12, Vt 475, PEEP 5, FiO2 40% WITH SPO2 OF 100%. BILATERAL BREATH SOUNDS ON AUSCULTATION; UPPER LOBES: COARSE, LOWER LOBES: COARSE. SUCTION MODERATE AMOUNT OF WHITE FLUFFY THIN SECRETIONS FROM TRACH TUBE.
[2022-07-13] MEDS ORDERED: PIPERACILLIN/TAZOBACTAM 2.25 GM in DEXTROSE 5% 50 ML IV SCH (21:45)
[2022-07-14] VITALS (30 sets, daily range): BP systolic 100–168; BP diastolic 57–92
[2022-07-14] MEDS ORDERED: AMIODARONE 450 MG/9 ML VIAL IV ONE (01:17)
[2022-07-14] MEDS: AMIODARONE 450 MG in DEXTROSE 5% 250 ML IV SCH ×2 (01:34→09:07)
[2022-07-14] MEDS: MORPHINE SULFATE 2 MG/ML SYR IVP PRN ×3 (01:45→18:06)
[2022-07-14] MEDS: BLOOD GLUCOSE MONITORING 1 DEV DEV FS SCH ×4 (01:50→18:08)
[2022-07-14] MEDS: HYDRAGUARD CREAM TP SCH ×2 (01:50→15:44)
[2022-07-14] MEDS: LORazepam 2 MG/ML VIAL IVP PRN (02:40)
[2022-07-14] MEDS ORDERED: PIPERACILLIN/TAZOBACTAM 2.25 GM in DEXTROSE 5% 50 ML IV SCH (05:00)
[2022-07-14 05:55] LABS: BASOPHILS % (AUTO) 0.1 % (0.0-2.0); EOSINOPHILS # (AUTO) 0.2 K/uL (0-0.4); HEMOGLOBIN 7.9 g/dL (12.0-18.0); LYMPHOCYTES # (AUTO) 0.8 K/uL (2.0-11.5); MEAN CORPUSCULAR HEMOGLOBIN 29 pg (27-31); MEAN CORPUSCULAR HGB CONC 33 g/dL (33-37); MONOCYTES # (AUTO) 0.6 K/uL (0.8-1.0); MONOCYTES % (AUTO) 6.3 % (1.7-9.3); NEUTROPHILS # (AUTO) 8.5 K/uL (1.8-7.7); NEUTROPHILS % (AUTO) 83.6 % (42.2-75.2); PLATELET COUNT (AUTO) 277 K/uL (140-450); RED CELL DISTRIBUTION WIDTH 16.5 % (11.6-13.7); WHITE BLOOD COUNT (AUTO) 10.1 K/uL (4.8-10.8)
[2022-07-14 06:41] LABS: ANION GAP 11.2 (8-16); CARBON DIOXIDE 30.5 mmol/L (21-32); CHLORIDE 107 mmol/L (98-107); CREATININE 0.5 mg/dL (0.6-1.3); GLUCOSE 123 mg/dL (74-106); POTASSIUM 3.7 mmol/L (3.5-5.1); SODIUM SERUM 145 mmol/L (136-145); UREA NITROGEN, BLOOD 17 mg/dL (7-18)
--- NOTE | 2022-07-14 07:10 | NUR ---
TRANSFER OF CARE TO DAY SHIFT, REPORT ENDORSED TO DALE EVANS
[2022-07-14] MEDS: PANTOPRAZOLE 40 MG INJ VIAL IVP SCH (09:13)
[2022-07-14] MEDS: MEROPENEM 1,000 MG in NACL 0.9% 100 ML IV SCH ×2 (09:16→20:47)
--- NOTE | 2022-07-14 11:10 | NUR ---
Held Amiodarone drip. HR 53, Sinus bradycardia, informed Dr Palomo, stated keep holding the amiodarone drip for now. noted and carried out.
--- NOTE | 2022-07-14 14:00 | NUR ---
cardiology consult: seen and examined patient, new order received to keep MAP@ 60. noted and carried out.
[2022-07-14] MEDS ORDERED: COMMUNICATION ORDER MC PRN (15:20)
[2022-07-14] MEDS: THERAHONEY GEL 42.5 GM TP SCH (15:43)
--- NOTE | 2022-07-14 19:03 | NUR ---
all needs mets, no s/s of distress, vital sign stable on ryan synephrine drip. report given to Siva HUNTER.
--- NOTE | 2022-07-14 20:16 | NUR ---
1l BOLUS GIVEN BY DAY SHIFT
[2022-07-14] MEDS: AMIODARONE 200 MG TAB GT SCH (20:47)
[2022-07-14] MEDS: PHENYLEPHRINE 40 MG in NACL 0.9% 250 ML IV PRN (23:39)
[2022-07-15] VITALS (31 sets, daily range): BP systolic 106–181; BP diastolic 64–100
[2022-07-15] MEDS: AMIODARONE 450 MG in DEXTROSE 5% 250 ML IV SCH ×3 (01:00→23:43)
[2022-07-15] MEDS: MORPHINE SULFATE 2 MG/ML SYR IVP PRN ×3 (01:06→20:46)
[2022-07-15] MEDS: HYDRAGUARD CREAM TP SCH ×2 (01:16→13:00)
[2022-07-15] MEDS: LEVOFLOXACIN 750 MG/D5W PREMIX 150 ML IV SCH (01:18)
--- NOTE | 2022-07-15 01:33 | NUR ---
0100 patient went into afib RVR hr 140-150s, RR 40s, BP 177/110, sats 80s Patient was put on 100% fi02, Dominik turned off and ammio restarted.
[2022-07-15] MEDS: LORazepam 2 MG/ML VIAL IVP PRN ×2 (01:39→23:43)
--- NOTE | 2022-07-15 01:46 | NUR ---
Patients heart rate now down to 82, RR 15 bp 118/71
[2022-07-15] MEDS: BLOOD GLUCOSE MONITORING 1 DEV DEV FS SCH ×5 (06:29→23:51)
--- NOTE | 2022-07-15 07:15 | NUR ---
RECEIVED PT ON PRVC 475,12,+5,30%. VENT WHEELS ARE LOCKED, PLUGGED INTO RED OUTLET, AMBU BAG AT BEDSIDE, ALARMS ARE SET AND AUDIBLE. SATURATION 98%, COARSE BREATH SOUNDS, SUCTIONED OUT MASS PINK TINGED SECRETIONS. STRONG COUGH AND GOOD CHEST RISE. WILL CONTINUE TO MONITOR.
--- NOTE | 2022-07-15 07:25 | NUR ---
RECEIVED BEDSIDE REPORT FROM ROSEMARY VALLECILLO SHERIFF'S SERGEANT RN, FOR CONTINUITY OF CARE. PT AWAKE, OPENS EYE TO VOICE, ABLE TO TRACK. SR ON MONITOR. PICC TO JINA INFUSING NS TKO. TRACH TO VENT AC/VC FIO2 30%/VT 475/R 12/PEEP 5. COPIOUS PINK TINGED SECRETIONS, SUCTIONED BY RT, PT TOLERATED WELL. G TUBE IN PLACE INFUSING GLUCERNA TUBE FEEDING AT 60 ML/HR WITH FWF 180 ML Q6H. F/C TO GRAVITY. GENERALIZED WEAKNESS. BED LOCKED AND IN LOWEST POSITION.
[2022-07-15 07:46] LABS: BASOPHILS % (AUTO) 0.5 % (0.0-2.0); EOSINOPHILS # (AUTO) 0.4 K/uL (0-0.4); EOSINOPHILS % (AUTO) 4.3 % (0.0-4.0); HEMOGLOBIN 8.1 g/dL (12.0-18.0); LYMPHOCYTES % (AUTO) 12.5 % (20.5-51.1); MEAN CORPUSCULAR HEMOGLOBIN 29 pg (27-31); MEAN CORPUSCULAR HGB CONC 32 g/dL (33-37); MEAN CORPUSCULAR VOLUME 89.2 fL (80-94); MONOCYTES # (AUTO) 0.7 K/uL (0.8-1.0); MONOCYTES % (AUTO) 8.4 % (1.7-9.3); NEUTROPHILS # (AUTO) 6.2 K/uL (1.8-7.7); NEUTROPHILS % (AUTO) 74.3 % (42.2-75.2); PLATELET COUNT (AUTO) 298 K/uL (140-450); RED CELL DISTRIBUTION WIDTH 16.7 % (11.6-13.7); WHITE BLOOD COUNT (AUTO) 8.3 K/uL (4.8-10.8)
[2022-07-15 07:58] LABS: ANION GAP 6.6 (8-16); CARBON DIOXIDE 31.9 mmol/L (21-32); CHLORIDE 105 mmol/L (98-107); CREATININE 0.7 mg/dL (0.6-1.3); GLUCOSE 88 mg/dL (74-106); POTASSIUM 4.5 mmol/L (3.5-5.1); SODIUM SERUM 139 mmol/L (136-145); UREA NITROGEN, BLOOD 19 mg/dL (7-18)
[2022-07-15 08:03] LABS: MAGNESIUM 1.9 mg/dL (1.8-2.4); PHOSPHORUS 2.5 mg/dL (2.5-4.9)
[2022-07-15] MEDS: MEROPENEM 1,000 MG in NACL 0.9% 100 ML IV SCH ×2 (08:05→20:45)
[2022-07-15] MEDS: PANTOPRAZOLE 40 MG INJ VIAL IVP SCH (08:05)
[2022-07-15] MEDS: AMIODARONE 200 MG TAB GT SCH ×2 (08:05→20:45)
[2022-07-15] MEDS: SULFAMETH/TRIMETH 400/80MG 1 TAB GT SCH ×2 (08:10→20:45)
--- NOTE | 2022-07-15 11:30 | NUR ---
PT HAD SMALL FORMED GREEN/BROWN STOOL. COLLECTED ORDERED STOOL SAMPLE AND SENT TO LAB.
--- NOTE | 2022-07-15 12:36 | NUR ---
PT HAD SEVERAL MINUTES OF CONTINUOUS VTACH AND KEPT HIS PULSE. CONVERTED TO SR WITHOUT INTERVENTION. NOTIFIED DR. ALVES, WHO SAID TO HOLD ON AMIODARONE DRIP AND JUST MONITOR FOR NOW. Addendum: 07/15/22 at 1753 by Martina Shine RN AFIB, NOT VTACH
[2022-07-15] MEDS: THERAHONEY GEL 42.5 GM TP SCH (13:00)
[2022-07-15] MEDS ORDERED: AMIODARONE 150 MG in DEXTROSE 5% 100 ML IV SCH (16:55)
[2022-07-15] MEDS ORDERED: AMIODARONE 150 MG/3 ML VIAL IV ONE (16:58)
--- NOTE | 2022-07-15 17:00 | NUR ---
SEEN AND EXAMINED BY DR. MANTILLA. NO NEW ORDERS.
--- NOTE | 2022-07-15 17:05 | NUR ---
SEEN AND EXAMINED BY DR. ALVES. ORDERS TO RESTART AMIODARONE AND START WITH BOLUS PER PROTOCOL.
[2022-07-15] MEDS ORDERED: AMIODARONE 450 MG/9 ML VIAL IV ONE ×2 (17:08→23:33)
--- NOTE | 2022-07-15 17:20 | NUR ---
150MG AMIODARONE BOLUS FINISHED. STARTED AMIODARONE DRIP AT 1MG/MIN.
--- NOTE | 2022-07-15 18:55 | NUR ---
ENDORSED BEDSIDE REPORT TO AVEL STEREOTYPE MOLDER ASSISTANT SITE MANAGER, FOR CONTINUITY OF CARE.
--- NOTE | 2022-07-15 23:44 | NUR ---
450mg Amio charted on order not override
[2022-07-16] VITALS (30 sets, daily range): BP systolic 97–149; BP diastolic 47–84
[2022-07-16] MEDS: HYDRAGUARD CREAM TP SCH ×2 (00:57→13:02)
[2022-07-16] MEDS: LEVOFLOXACIN 750 MG/D5W PREMIX 150 ML IV SCH (01:12)
[2022-07-16] MEDS: BLOOD GLUCOSE MONITORING 1 DEV DEV FS SCH ×3 (06:00→17:50)
[2022-07-16] MEDS ORDERED: AMIODARONE 150 MG/3 ML VIAL IV ONE ×2 (07:04→07:05)
--- NOTE | 2022-07-16 07:10 | NUR ---
RECEIVED BEDSIDE REPORT FROM ROSEMARY VALLECILLO COLOR CHECKER ROVING OR YARN RN, FOR CONTINUITY OF CARE. PT AWAKE, OPENS EYE TO VOICE, ABLE TO TRACK. SR ON MONITOR. PICC TO JINA INFUSING AMIODARONE AT 1 MG/MIN AND NS TKO. TRACH TO VENT AC/VC FIO2 30%/VT 475/R 12/PEEP 5. G TUBE IN PLACE INFUSING GLUCERNA TUBE FEEDING AT 60 ML/HR WITH FWF 180 ML Q6H. F/C TO GRAVITY. GENERALIZED WEAKNESS. CONTACT PRECAUTION FOR MDRO. BED LOCKED AND IN LOWEST POSITION.
[2022-07-16 08:03] LABS: BASOPHILS % (AUTO) 0.4 % (0.0-2.0); EOSINOPHILS # (AUTO) 0.2 K/uL (0-0.4); EOSINOPHILS % (AUTO) 1.8 % (0.0-4.0); HEMATOCRIT 24.6 % (36-52); HEMOGLOBIN 8.1 g/dL (12.0-18.0); LYMPHOCYTES % (AUTO) 10.9 % (20.5-51.1); MEAN CORPUSCULAR HEMOGLOBIN 30 pg (27-31); MEAN CORPUSCULAR HGB CONC 33 g/dL (33-37); MEAN CORPUSCULAR VOLUME 89.7 fL (80-94); MONOCYTES # (AUTO) 0.8 K/uL (0.8-1.0); MONOCYTES % (AUTO) 9.1 % (1.7-9.3); NEUTROPHILS % (AUTO) 77.8 % (42.2-75.2); PLATELET COUNT (AUTO) 316 K/uL (140-450); RED BLOOD CELL COUNT(AUTO) 2.74 MIL/uL (4.20-6.10); RED CELL DISTRIBUTION WIDTH 17.2 % (11.6-13.7)
[2022-07-16 08:22] LABS: ANION GAP 11.1 (8-16); CARBON DIOXIDE 25.6 mmol/L (21-32); CHLORIDE 105 mmol/L (98-107); CREATININE 0.7 mg/dL (0.6-1.3); GLUCOSE 117 mg/dL (74-106); POTASSIUM 3.7 mmol/L (3.5-5.1); SODIUM SERUM 138 mmol/L (136-145); UREA NITROGEN, BLOOD 18 mg/dL (7-18)
[2022-07-16 08:26] LABS: MAGNESIUM 1.9 mg/dL (1.8-2.4); PHOSPHORUS 2.1 mg/dL (2.5-4.9)
[2022-07-16] MEDS: AMIODARONE 450 MG in DEXTROSE 5% 250 ML IV SCH (08:30)
[2022-07-16] MEDS: AMIODARONE 200 MG TAB GT SCH (09:00)
[2022-07-16] MEDS: PANTOPRAZOLE 40 MG INJ VIAL IVP SCH (09:12)
[2022-07-16] MEDS: MEROPENEM 1,000 MG in NACL 0.9% 100 ML IV SCH ×2 (09:13→21:23)
[2022-07-16] MEDS: SULFAMETH/TRIMETH 400/80MG 1 TAB GT SCH ×2 (09:13→21:23)
--- NOTE | 2022-07-16 11:45 | NUR ---
PT HAD MEDIUM SIZE FORMED GREEN/BROWN BM. CLEANED TURNED AND REPOSITIONED WITH CONDUCTOR/ENGINEER. PT TOLERATED WELL.
[2022-07-16] MEDS: THERAHONEY GEL 42.5 GM TP SCH (13:00)
--- NOTE | 2022-07-16 16:00 | NUR ---
SEEN AND EXAMINED BY DR. ALVES, ORDERS TO MAINTAIN AMIODARONE DRIP AT 1 MG/MIN UNTIL FURTHER NOTICE.
--- NOTE | 2022-07-16 16:15 | NUR ---
PT HAD SMALL PASTY GREEN/BROWN BM. FULL LINEN CHANGE AND WOUND CARE DONE. CLEANSED AREA WITH SKINTEGRITY, PAT DRY WITH STERILE GAUZE, APPLIED THERAHONEY AND OIL EMULSION DRESSING TO UNDERMINED AREA AND COVERED WITH ADHESIVE FOAM DRESSING PER MD ORDERS. PT TOLERATED WELL.
--- NOTE | 2022-07-16 19:01 | NUR ---
07/16/22 RD FOLLOW UP COMPLETED. PLEASE REFER TO NUTRITION ASSESSMENT UNDER CARE ACTIVITY FOR ESTIMATED NUTRITIONAL NEEDS. 1. CONTINUE GLUCERNA 1.2 @60 ML/HR TOLERATED, FWF 180 Q6H OR PER MD - CONTINUE LAWRENCE BID, WILL PROVIDE 160 KCAL AND 5 GRAMS PROTEIN - WITH LAWRENCE BID, PT WILL RECEIVE 1880 KCAL & 91 GRAMS OF PROTEIN, MEETING 77% OF KCAL NEEDS AND 76% OF PROTEIN NEEDS; ADEQUATE. 2. MONITOR FOR GI SYMPTOMS 3. RD TO FOLLOW-UP IN 3-5 DAYS PATIENT IS MODERATE RISK. MILLIE REDDY RD
--- NOTE | 2022-07-16 19:30 | NUR ---
ENDORSED BEDSIDE REPORT TO JASON MOWER SHARPENER RN, FOR CONTINUITY OF CARE.
--- NOTE | 2022-07-16 19:45 | NUR ---
PT ALERT AND ORIENTED X0. ETT TO VENT SETTINGS AC PRVC FI02 30% VT 475 PEEP 5 RATE 12. PEG TUBE FEEDING DIET GLUCERNA 60ML/HR 180 ML Q6HR. SR/AFIB TO BEDSIDE MONITOR. JINA PICC LINE. AMIODARONE DRIP RUNNING AT 1 MG/HR. JIMENES CATHETER INTACT AND FLOWING WELL. FLACC 0. Addendum: 07/16/22 at 2211 by Trev Farnsworth RN TRACH TO VENT.
[2022-07-17] VITALS (28 sets, daily range): BP systolic 92–165; BP diastolic 49–99
[2022-07-17] MEDS ORDERED: AMIODARONE 450 MG/9 ML VIAL IV ONE (00:33)
[2022-07-17] MEDS: AMIODARONE 450 MG in DEXTROSE 5% 250 ML IV SCH (00:42)
[2022-07-17] MEDS: BLOOD GLUCOSE MONITORING 1 DEV DEV FS SCH ×5 (00:43→23:56)
[2022-07-17] MEDS: HYDRAGUARD CREAM TP SCH ×2 (00:46→13:00)
[2022-07-17] MEDS: LEVOFLOXACIN 750 MG/D5W PREMIX 150 ML IV SCH (01:00)
--- NOTE | 2022-07-17 07:19 | NUR ---
REPORT GIVEN TO AM SHIFT DALE BREAUX.
--- NOTE | 2022-07-17 07:30 | NUR ---
RECEIVED PT IN HOSPITAL BED ALERT, TRACH TO VENT, TOLERATING VENT SETTINGS. AFIB ON MONITOR. AMIODARONE 1MG/MIN. PICC TO JINA NOTED. INTACT WITH GOOD BLOOD RETURN. GTUBE FEEDING GLUCERNA @ 60 TOLERATING WELL WITHOUT RISIDUAL NOTED. SCD ON TOLERATING WELL. HOB ELEVATED FOR ASPIRATION PRECAUTIONS. SAFETY MAINTAINED
[2022-07-17] MEDS: MEROPENEM 1,000 MG in NACL 0.9% 100 ML IV SCH ×2 (09:00→20:46)
[2022-07-17] MEDS: SULFAMETH/TRIMETH 400/80MG 1 TAB GT SCH ×2 (09:00→20:52)
[2022-07-17] MEDS: PANTOPRAZOLE 40 MG INJ VIAL IVP SCH (09:00)
--- NOTE | 2022-07-17 09:30 | NUR ---
PT RESTING IN BED NO CHANGES NOTED
--- NOTE | 2022-07-17 12:00 | NUR ---
BS CHECKED NO COVERAGE NEEDED
[2022-07-17 12:07] LABS: BASOPHILS % (AUTO) 0.4 % (0.0-2.0); EOSINOPHILS # (AUTO) 0.2 K/uL (0-0.4); EOSINOPHILS % (AUTO) 2.2 % (0.0-4.0); HEMATOCRIT 23.6 % (36-52); HEMOGLOBIN 7.5 g/dL (12.0-18.0); LYMPHOCYTES # (AUTO) 0.9 K/uL (2.0-11.5); LYMPHOCYTES % (AUTO) 12.3 % (20.5-51.1); MEAN CORPUSCULAR HEMOGLOBIN 29 pg (27-31); MEAN CORPUSCULAR HGB CONC 32 g/dL (33-37); MEAN CORPUSCULAR VOLUME 90.2 fL (80-94); MONOCYTES # (AUTO) 0.7 K/uL (0.8-1.0); MONOCYTES % (AUTO) 8.4 % (1.7-9.3); NEUTROPHILS # (AUTO) 5.9 K/uL (1.8-7.7); NEUTROPHILS % (AUTO) 76.7 % (42.2-75.2); PLATELET COUNT (AUTO) 315 K/uL (140-450); RED BLOOD CELL COUNT(AUTO) 2.62 MIL/uL (4.20-6.10); RED CELL DISTRIBUTION WIDTH 17.7 % (11.6-13.7); WHITE BLOOD COUNT (AUTO) 7.7 K/uL (4.8-10.8)
[2022-07-17 12:39] LABS: ANION GAP 12.4 (8-16); CARBON DIOXIDE 24.6 mmol/L (21-32); CHLORIDE 105 mmol/L (98-107); CREATININE 0.9 mg/dL (0.6-1.3); GLUCOSE 109 mg/dL (74-106); SODIUM SERUM 138 mmol/L (136-145); UREA NITROGEN, BLOOD 18 mg/dL (7-18)
[2022-07-17] MEDS: THERAHONEY GEL 42.5 GM TP SCH (13:00)
[2022-07-17] MEDS ORDERED: ALBUTEROL SULFATE/IPRATROPIU 3 ML SOL IH ONE (16:36)
--- NOTE | 2022-07-17 16:47 | NUR ---
PT HAD SUDDEN ONSET OF RESPIRATORY DISTRESS. PT TACHYPNEIC IN 40S GASPING AFIB RVR IN 150S, PAGED DR MANTILLA ORDERED TO MEDICATE WITH PRN ATIVAN AND ORDER VERSED DRIP AND STAT CXR. RT AT BEDSIDE.
[2022-07-17] MEDS ORDERED: MIDAZOLAM MDV 50 MG in NACL 0.9% 40 ML IV PRN (16:55)
[2022-07-17] MEDS: LORazepam 2 MG/ML VIAL IVP PRN (17:09)
[2022-07-17] MEDS: MIDAZOLAM MDV 100 MG in NACL 0.9% 80 ML IV PRN ×2 (17:36→18:48)
--- NOTE | 2022-07-17 17:50 | NUR ---
SPOKE TO DR MANTILLA REGARDING CXR RESULTS, STATES ADJUST FIO2 PER 02 SATURATION NEEDED. NO NEW ORDERS. STATES WILL POSSIBLE DO A BRONCHOSCOPY TOMORROW
--- NOTE | 2022-07-17 18:30 | NUR ---
PT TOLERATING VERSED DRIP. APPEARS MORE COMFORTABLE. SAFETY MAINTAINED.
[2022-07-17] MEDS: ALBUTEROL SULFATE/IPRATROPIU 3 ML SOL IH SCH ×2 (18:59→23:03)
--- NOTE | 2022-07-17 19:10 | NUR ---
RECEIVED PATIENT ON BED WITH HOB ELEVATED TO 30 DEGREE; SEDATED WITH CONTINUOS VERSED DRIP AT 2 MG/HR; RASS-3.ON TRACH TO VENT AT 30% FIO2 SO2 98%. CARDIACSCOPE SHOWS ON ATRIAL FIB WITH BBB HR 82/MIN. WITH AMIODARONE AT 1 MG/MIN VIA PICC LINE TO RIGHT UPPER ARM; INTACT.ABDOMEN IS SOFT, NON TENDER, ACTIVE BOWEL SOUNDS. ON CONTINUOUS TUBE FEEDING GLUCERNA 60 ML/HR. VIA G TUBE. WITH JIMENES CATH IN PLACE DRAINING TO CLEAR YELLOW URINE OUTPUT. RECTAL TUBE IN PLACE TO WATERY YELLOW BROWN OUTPUT.
--- NOTE | 2022-07-17 20:30 | NUR ---
TURNED AND REPOSITIONED PATIENT; ORAL CARE DONE WITH VAP KIT.
[2022-07-18] VITALS (26 sets, daily range): BP systolic 90–117; BP diastolic 45–83
[2022-07-18] MEDS: LEVOFLOXACIN 750 MG/D5W PREMIX 150 ML IV SCH (00:36)
[2022-07-18] MEDS: AMIODARONE 450 MG in DEXTROSE 5% 250 ML IV SCH (00:37)
[2022-07-18] MEDS: ALBUTEROL SULFATE/IPRATROPIU 3 ML SOL IH SCH ×6 (03:11→23:36)
[2022-07-18] MEDS: HYDRAGUARD CREAM TP SCH ×2 (04:00→13:00)
--- NOTE | 2022-07-18 04:00 | NUR ---
MORNING CARE DONE; WOUND CARE DONE; KEPT CLEAN DRY AND COMFORTABLE.
[2022-07-18 05:26] LABS: BASOPHILS % (AUTO) 0.2 % (0.0-2.0); EOSINOPHILS # (AUTO) 0.3 K/uL (0-0.4); HEMATOCRIT 21.1 % (36-52); LYMPHOCYTES # (AUTO) 0.7 K/uL (2.0-11.5); LYMPHOCYTES % (AUTO) 13.2 % (20.5-51.1); MEAN CORPUSCULAR HEMOGLOBIN 29 pg (27-31); MEAN CORPUSCULAR HGB CONC 33 g/dL (33-37); MONOCYTES # (AUTO) 0.4 K/uL (0.8-1.0); MONOCYTES % (AUTO) 7.6 % (1.7-9.3); NEUTROPHILS # (AUTO) 4.1 K/uL (1.8-7.7); PLATELET COUNT (AUTO) 303 K/uL (140-450); RED CELL DISTRIBUTION WIDTH 18.1 % (11.6-13.7); WHITE BLOOD COUNT (AUTO) 5.6 K/uL (4.8-10.8)
[2022-07-18] MEDS: BLOOD GLUCOSE MONITORING 1 DEV DEV FS SCH ×3 (06:05→18:40)
[2022-07-18 06:21] LABS: ANION GAP 10.7 (8-16); CARBON DIOXIDE 25.9 mmol/L (21-32); CHLORIDE 107 mmol/L (98-107); CREATININE 0.7 mg/dL (0.6-1.3); GLUCOSE 91 mg/dL (74-106); POTASSIUM 3.6 mmol/L (3.5-5.1); SODIUM SERUM 140 mmol/L (136-145); UREA NITROGEN, BLOOD 18 mg/dL (7-18)
[2022-07-18 06:26] LABS: PHOSPHORUS 3.1 mg/dL (2.5-4.9)
--- NOTE | 2022-07-18 07:30 | NUR ---
RECEIVED PT IN HOSPITAL BED, TRACH TO VENT TOLERATING VENT SETTINGS WELL. BREATHING UNLABORED. AFIB CONTROLLED WITH AMIODARONE AT 1MG/HR. VERSED INFUSING 2MG/HR. GLUCERNA RUNNING VIA Journalism OnlineUBE @60ML/HR WITHOUT RISIDUAL NOTED. DC DRAINING TO GRAVITY, BED IN LOW POSITION. SAFETY MAINTAINED.
[2022-07-18] MEDS: SULFAMETH/TRIMETH 400/80MG 1 TAB GT SCH ×2 (08:33→21:14)
[2022-07-18] MEDS: PANTOPRAZOLE 40 MG INJ VIAL IVP SCH (08:33)
[2022-07-18] MEDS: MEROPENEM 1,000 MG in NACL 0.9% 100 ML IV SCH ×2 (08:33→21:13)
[2022-07-18] MEDS ORDERED: FUROSEMIDE 40 MG/4 ML VIAL IVP SCH (11:00)
--- NOTE | 2022-07-18 12:50 | NUR ---
DR ALVES AT BEDSIDE NO NEW ORDERS NOTED
[2022-07-18] MEDS: THERAHONEY GEL 42.5 GM TP SCH (13:00)
--- NOTE | 2022-07-18 13:00 | NUR ---
WOUND CARE COMPLETED, BED BATH GIVEN LINEN CHANGE. TOLERATED WELL. SAFETY MAINTAINED.
--- NOTE | 2022-07-18 13:43 | NUR ---
DR MANTILLA AT BEDSIDE ORDERS TO TITRATE AMIODARONE FROM 1MG/HR TO 0.5MG/HR
--- NOTE | 2022-07-18 16:00 | NUR ---
PT RESTING TOLERATING VENT SETTINGS WELL. REMAINS AFIB CONTROLLED. NAD. SAFETY MAINTAINED
[2022-07-18] MEDS ORDERED: AMIODARONE 450 MG in DEXTROSE 5% 250 ML IV SCH (19:10)
--- NOTE | 2022-07-18 19:11 | NUR ---
REPORT GIVEN TO NIGHT RN FOR CONTINUATION OF CARE
--- NOTE | 2022-07-18 19:15 | NUR ---
RECEIVED REPORT FROM NAMITA HUNTER FOR CONTINUITY OF CARE. PT PIS TRACHED TO VENT, THE TRACH DRSG IS CLEAN AND DRY. HIS VENT SETTING ARE AC/VC FIO2 30%, TV475, RATE 12 AND PEEP5 THE VENT ALARMING HI-PEAK. SUCTIONED PT FOR A LARGE AMOUNT OF THIN WHITE SECRETION AND ORAL CARE GIVEN. HE'S AFEBRILE AND HIS BLOOD PRESSURE IS WNL 98/52. HE HAS HIS EYES CLOSED AND IS RESISTANT TO PUPIL CHECKS. HE HAS A PEG TUBE IN PLACE . THE DRSG IS CLEAN DRY AND INTACT. HE HAS GLUCERNA INFUSING AT 60CC/HOUR AND FREE WATER 180CC/Q 6HOURS. HE HAS A JIMENES DRAINING CLEAR DARK YELLOW URINE. HE HAS IV ACCESS IN THE RIGHT UPPER ARM PICC-LINE. HE APPEARS W/O DISTRESS AT THIS TIME
[2022-07-19] VITALS (29 sets, daily range): BP systolic 98–129; BP diastolic 48–74
[2022-07-19] MEDS: HYDRAGUARD CREAM TP SCH ×2 (01:04→13:08)
[2022-07-19] MEDS: LEVOFLOXACIN 750 MG/D5W PREMIX 150 ML IV SCH (01:05)
[2022-07-19] MEDS: ALBUTEROL SULFATE/IPRATROPIU 3 ML SOL IH SCH ×5 (03:46→19:22)
--- NOTE | 2022-07-19 05:00 | NUR ---
RECEIVED REPORT FROM ERIC FOR CONTINUITY OF CARE.
[2022-07-19 05:47] LABS: BASOPHILS % (AUTO) 0.4 % (0.0-2.0); EOSINOPHILS # (AUTO) 0.4 K/uL (0-0.4); EOSINOPHILS % (AUTO) 4.3 % (0.0-4.0); HEMATOCRIT 23.7 % (36-52); HEMOGLOBIN 7.9 g/dL (12.0-18.0); LYMPHOCYTES # (AUTO) 0.7 K/uL (2.0-11.5); LYMPHOCYTES % (AUTO) 7.6 % (20.5-51.1); MEAN CORPUSCULAR HEMOGLOBIN 29 pg (27-31); MEAN CORPUSCULAR HGB CONC 33 g/dL (33-37); MEAN CORPUSCULAR VOLUME 88.2 fL (80-94); MONOCYTES # (AUTO) 0.6 K/uL (0.8-1.0); MONOCYTES % (AUTO) 6.7 % (1.7-9.3); NEUTROPHILS # (AUTO) 7.4 K/uL (1.8-7.7); PLATELET COUNT (AUTO) 362 K/uL (140-450); RED BLOOD CELL COUNT(AUTO) 2.69 MIL/uL (4.20-6.10); RED CELL DISTRIBUTION WIDTH 18.7 % (11.6-13.7); WHITE BLOOD COUNT (AUTO) 9.2 K/uL (4.8-10.8)
[2022-07-19] MEDS: BLOOD GLUCOSE MONITORING 1 DEV DEV FS SCH ×5 (06:00→23:39)
[2022-07-19 06:26] LABS: ANION GAP 10.1 (8-16); CARBON DIOXIDE 28.9 mmol/L (21-32); CHLORIDE 105 mmol/L (98-107); CREATININE 0.7 mg/dL (0.6-1.3); GLUCOSE 106 mg/dL (74-106); SODIUM SERUM 140 mmol/L (136-145); UREA NITROGEN, BLOOD 28 mg/dL (7-18)
--- NOTE | 2022-07-19 06:30 | NUR ---
ACCUCHECK DONE, NO INSULIN GIVEN PER SLIDING SCALE.
[2022-07-19 06:57] LABS: MAGNESIUM 2.3 mg/dL (1.8-2.4); PHOSPHORUS 2.5 mg/dL (2.5-4.9)
--- NOTE | 2022-07-19 07:15 | NUR ---
RECEIVED BESIDE REPORT FROM ORTHOPEDIC TECH NURSE ERIC HUNTER. PT IS TRACH TO VENT. NO S/S OF ACUTE RESPIRATORY DISTRESS. PICC TO RIGHT UPPER ARM, RUNNING VERSED @ 2 MG/H, AMIODARONE @ 0.5 MG/MIN. G TUBE IN PLACE, RUNNING GLUCERNA @60 MLS/HR, FWF [address] Q[address] JIMENES IN PLACE TO GRAVITY, RECTAL TUBE IN PLACE TO GRAVITY. SEE WOUNDS ASSESSMENT. BED TO LOWEST POSITION, CALL LIGHT WITHIN REACH, WILL CONTINUE TO MONITOR. Addendum: 07/19/22 at 1254 by Chandana Soto RN AC VC FIO2 30%, VT 475, RR 12, PEEP 5.
[2022-07-19] MEDS: PANTOPRAZOLE 40 MG INJ VIAL IVP SCH (08:28)
[2022-07-19] MEDS: MEROPENEM 1,000 MG in NACL 0.9% 100 ML IV SCH ×2 (08:28→20:27)
[2022-07-19] MEDS: SULFAMETH/TRIMETH 400/80MG 1 TAB GT SCH ×2 (08:29→20:28)
--- NOTE | 2022-07-19 08:30 | NUR ---
DR JOSE RAFAEL VAZQUEZ AT BEDSIDE. UPDATED PT INFORMATION.
[2022-07-19] MEDS: MIDAZOLAM MDV 100 MG in NACL 0.9% 80 ML IV PRN (09:40)
--- NOTE | 2022-07-19 09:40 | NUR ---
DR JAMESON VAZQUEZ AT BEDSIDE. UPDATED PT INFORMATION. CONSULT PUTTY AND PATCH WORKER FOR STOPPING AMIODARONE DRIP.
[2022-07-19] MEDS: THERAHONEY GEL 42.5 GM TP SCH (13:09)
--- NOTE | 2022-07-19 17:00 | NUR ---
DR MARTINEZ ROUNDING AT BEDSIDE. UPDATED PT INFORMATION.
--- NOTE | 2022-07-19 17:11 | NUR ---
RECEIVED PHONE CALL FROM [facility]. UPDATED PT INFORMATION, ALL THE QUESTIONS ANSWERED.
--- NOTE | 2022-07-19 18:30 | NUR ---
DR ALVES ROUNDING AT BEDSIDE. UPDATED PT INFORMATION. ORDERED CHANGE AMIODARONE DRIP TO AMIODARONE 400 MG BID G TUBE.
--- NOTE | 2022-07-19 19:20 | NUR ---
ENDORSED TO DIRECTOR HAIR NITA RN FOR CONTINUITY OF CARE. ALL QUESTION ANSWERED.
--- NOTE | 2022-07-19 19:30 | NUR ---
ASSUMED CARE OF PT.INITIAL ASSESSMENT COMPLETED.PT AWAKE .SR WITH BBB NOTED ON MONITOR.TRACH TO VENT AC VC FIO2 30% TV 475 RATE 12 PEEP 5.JINA PICC LINE ALREADY IN PLACE, FLUSHED GOOD BLOOD RETURN TO BOTH PORTS.W/VERSED DRIP AT 2MG/HR AND AMIODARONE DRIP AT 0.5MG/MIN.WILL DC ORDERED.W/G TUBE.ON CONTINUOUS G TUBE FEEDING ORDERED.W/JIMENES CATHETER TO BSD DRAINING SMALL AMT OF YELLOW URINE.W/FLEXI SEAL ALREADY IN PLACE.SMALL AMT OF LIQUID BROWN STOOL NOTED.FLACC 0.WILL CONTINUE TO CLOSELY MONITOR PT
--- NOTE | 2022-07-19 20:09 | NUR ---
MESSAGED DR ALVES, PANEL EDGE PAINTER, AWARE AMIODARONE WILL BE STARTED, OK TO STOP AMIODARONE DRIP.CARRIED OUT
[2022-07-19] MEDS: AMIODARONE 200 MG TAB GT SCH (20:27)
[2022-07-19] MEDS ORDERED: MIDAZOLAM MDV 50 MG in NACL 0.9% 40 ML IV PRN (21:00)
--- NOTE | 2022-07-19 23:43 | NUR ---
PT ASLEEP; NO S/SX OF RESP DISTRESS NOTED.BS 100, NO INSULIN COVERAGE REQUIRED.FLACC 0.REPOSITIONED
[2022-07-20] VITALS (31 sets, daily range): BP systolic 89–136; BP diastolic 44–92
[2022-07-20] MEDS: LEVOFLOXACIN 750 MG/D5W PREMIX 150 ML IV SCH (00:22)
[2022-07-20] MEDS: HYDRAGUARD CREAM TP SCH ×2 (00:22→13:40)
[2022-07-20] MEDS: ALBUTEROL SULFATE/IPRATROPIU 3 ML SOL IH SCH ×7 (00:23→23:14)
--- NOTE | 2022-07-20 03:51 | NUR ---
ORAL CARE DONE,ORAL CARE RENDERED.REPOSITIONED.FLACC 0
--- NOTE | 2022-07-20 05:30 | NUR ---
MORNING CARE DONE.ALL LINENS CHANGED.ORAL CARE RENDERED.SECRETIONS SUCTIONED,MODERATE AMT OF CREAMY SECRETIONS NOTED.FLACC 0
[2022-07-20 05:33] LABS: BASOPHILS % (AUTO) 0.6 % (0.0-2.0); EOSINOPHILS # (AUTO) 0.3 K/uL (0-0.4); EOSINOPHILS % (AUTO) 5.1 % (0.0-4.0); HEMATOCRIT 22.5 % (36-52); HEMOGLOBIN 7.5 g/dL (12.0-18.0); LYMPHOCYTES # (AUTO) 0.8 K/uL (2.0-11.5); LYMPHOCYTES % (AUTO) 11.5 % (20.5-51.1); MEAN CORPUSCULAR HEMOGLOBIN 29 pg (27-31); MEAN CORPUSCULAR HGB CONC 34 g/dL (33-37); MEAN CORPUSCULAR VOLUME 87.7 fL (80-94); MONOCYTES # (AUTO) 0.5 K/uL (0.8-1.0); MONOCYTES % (AUTO) 7.1 % (1.7-9.3); NEUTROPHILS % (AUTO) 75.7 % (42.2-75.2); PLATELET COUNT (AUTO) 349 K/uL (140-450); RED BLOOD CELL COUNT(AUTO) 2.56 MIL/uL (4.20-6.10); RED CELL DISTRIBUTION WIDTH 19.5 % (11.6-13.7); WHITE BLOOD COUNT (AUTO) 6.7 K/uL (4.8-10.8)
[2022-07-20] MEDS: BLOOD GLUCOSE MONITORING 1 DEV DEV FS SCH ×4 (06:00→23:53)
[2022-07-20 06:09] LABS: ANION GAP 8.8 (8-16); CARBON DIOXIDE 28.5 mmol/L (21-32); CHLORIDE 104 mmol/L (98-107); CREATININE 0.8 mg/dL (0.6-1.3); GLUCOSE 98 mg/dL (74-106); MAGNESIUM 2.2 mg/dL (1.8-2.4); PHOSPHORUS 3.2 mg/dL (2.5-4.9); POTASSIUM 4.3 mmol/L (3.5-5.1); SODIUM SERUM 137 mmol/L (136-145); UREA NITROGEN, BLOOD 21 mg/dL (7-18)
--- NOTE | 2022-07-20 07:42 | NUR ---
PT AWAKE .SB WITH PVC'S NOTED ON MONITOR.TRACH TO VENT AC VC FIO2 30% TV 475 RATE 12 PEEP 5. JINA PICC LINE IN PLACE, FLUSHED GOOD BLOOD RETURN TO BOTH PORTS. VERSED DRIP AT 2MG/HR.G -TUBE GLUCERNA 1.2 @60ML/HR. JIMENES CATHETER TO BSD DRAINING SMALL AMT OF YELLOW URINE. FLEXI SEAL ALREADY IN PLACE.SMALL AMT OF LIQUID BROWN STOOL NOTED.FLACC 0.WILL CONTINUE TO CLOSELY MONITOR PT
[2022-07-20] MEDS: AMIODARONE 200 MG TAB GT SCH ×2 (08:30→20:20)
[2022-07-20] MEDS: MEROPENEM 1,000 MG in NACL 0.9% 100 ML IV SCH ×2 (08:30→20:19)
[2022-07-20] MEDS: PANTOPRAZOLE 40 MG INJ VIAL IVP SCH (08:31)
[2022-07-20] MEDS: SULFAMETH/TRIMETH 400/80MG 1 TAB GT SCH ×2 (08:32→20:19)
--- NOTE | 2022-07-20 11:00 | NUR ---
PULMO CONSULT: SEEN BY DR. MANTILLA, UPDATED PATIENT CURRENT CONDITION. NO NEW ORDER NOTED.
[2022-07-20] MEDS: THERAHONEY GEL 42.5 GM TP SCH (13:40)
--- NOTE | 2022-07-20 13:45 | NUR ---
DR MARTINEZ ROUNDING AT BEDSIDE. UPDATED PT INFORMATION.
--- NOTE | 2022-07-20 14:00 | NUR ---
WOUND CARE: WOUND CARE DONE FOLLOWED WOUND CARE NURSE RECOMMENDATION.
[2022-07-20] MEDS ORDERED: HYDROcodone/APAP 5/325 MG 1 TAB TAB PO PRN (17:40)
--- NOTE | 2022-07-20 18:28 | NUR ---
ALL NEEDS METS, NO S/S OF DISTRESS, VITAL SIGN STABLE, AFEBRILE. IVF KVO RATE AND VERSED @2MG/HR INFUSING AT JINA PICC LINE. NO SWELLING OR INFILTRATION NOTED.VENT SETTING AC 12, TV 475, FIO2 30%, PEEP 5, SATURATION 97%. JIMENES CATHETER DRAINING WELL VIA GRAVITY, RECTAL TUBE FLUSH WITH 50ML OF STERILE WATER. OUTPUT RECORD. SACRUM WOUND DRESSING INTACT. WILL ENDORSED TO INCOMING.
--- NOTE | 2022-07-20 19:30 | NUR ---
ASSUMED CARE AT THIS TIME. PT TRACH TO VENT SETTINGS FI01 30% VT 475 RATE 35 PEEP 5. GLUCERNA TUBE FEEDING 60 ML/HR 180ML Q6HR FREE FLUSH. JIMENES CATHETER INTACT AND FLOWING WELL. JINA PICC LINE VERCED 2MG/HR. NS 5ML/HR TKO. FLEXISEAL INTACT. 400CC AT START OF SHIFT. FLACC 0.
--- NOTE | 2022-07-20 22:33 | NUR ---
TEMP 98.3. PM MEDS GIVEN.
[2022-07-21] VITALS (13 sets, daily range): BP systolic 82–112; BP diastolic 37–65
[2022-07-21] MEDS: LEVOFLOXACIN 750 MG/D5W PREMIX 150 ML IV SCH (00:09)
[2022-07-21] MEDS: HYDRAGUARD CREAM TP SCH ×2 (00:10→13:06)
--- NOTE | 2022-07-21 02:00 | NUR ---
ORAL CARE DONE.
--- NOTE | 2022-07-21 04:00 | NUR ---
AM CARE DONE AND REPOSITIONED.
[2022-07-21] MEDS: ALBUTEROL SULFATE/IPRATROPIU 3 ML SOL IH SCH ×3 (04:07→11:00)
[2022-07-21 06:02] LABS: BASOPHILS % (AUTO) 0.4 % (0.0-2.0); EOSINOPHILS # (AUTO) 0.3 K/uL (0-0.4); EOSINOPHILS % (AUTO) 3.9 % (0.0-4.0); HEMATOCRIT 23.1 % (36-52); HEMOGLOBIN 7.6 g/dL (12.0-18.0); LYMPHOCYTES # (AUTO) 0.7 K/uL (2.0-11.5); LYMPHOCYTES % (AUTO) 9.7 % (20.5-51.1); MEAN CORPUSCULAR HEMOGLOBIN 30 pg (27-31); MEAN CORPUSCULAR HGB CONC 33 g/dL (33-37); MEAN CORPUSCULAR VOLUME 88.9 fL (80-94); MONOCYTES # (AUTO) 0.5 K/uL (0.8-1.0); MONOCYTES % (AUTO) 7.8 % (1.7-9.3); NEUTROPHILS # (AUTO) 5.4 K/uL (1.8-7.7); NEUTROPHILS % (AUTO) 78.2 % (42.2-75.2); PLATELET COUNT (AUTO) 362 K/uL (140-450); RED BLOOD CELL COUNT(AUTO) 2.59 MIL/uL (4.20-6.10)
[2022-07-21] MEDS: BLOOD GLUCOSE MONITORING 1 DEV DEV FS SCH ×2 (06:20→13:00)
[2022-07-21 06:45] LABS: ANION GAP 11.6 (8-16); CARBON DIOXIDE 27.9 mmol/L (21-32); CHLORIDE 103 mmol/L (98-107); CREATININE 0.7 mg/dL (0.6-1.3); GLUCOSE 96 mg/dL (74-106); POTASSIUM 4.5 mmol/L (3.5-5.1); SODIUM SERUM 138 mmol/L (136-145); UREA NITROGEN, BLOOD 22 mg/dL (7-18)
[2022-07-21 06:52] LABS: MAGNESIUM 2.2 mg/dL (1.8-2.4); PHOSPHORUS 3.4 mg/dL (2.5-4.9)
--- NOTE | 2022-07-21 07:00 | NUR ---
RECEIVED BEDSIDE REPORT FROM JASON BUSINESS SUPPORT SPECIALIST RN, FOR CONTINUITY OF CARE. PT AWAKE, OPENS EYE TO VOICE, ABLE TO TRACK. SB ON MONITOR. PICC TO JINA INFUSING VERSED AT 2 MG/HR AND NS TKO. TRACH TO VENT AC/VC FIO2 30%/VT 475/R 12/PEEP 5. G TUBE IN PLACE INFUSING GLUCERNA TUBE FEEDING AT 60 ML/HR WITH FWF 180 ML Q6H. F/C TO GRAVITY. GENERALIZED WEAKNESS. CONTACT PRECAUTION FOR MDRO. BED LOCKED AND IN LOWEST POSITION.
--- NOTE | 2022-07-21 07:09 | NUR ---
REPORT GIVEN TO AM SHIFT DALE COBOS.
--- NOTE | 2022-07-21 07:30 | NUR ---
SEEN AND EXAMINED BY DR. MANTILLA. ORDERS TO STOP VERSED.
[2022-07-21] MEDS: MEROPENEM 1,000 MG in NACL 0.9% 100 ML IV SCH (08:27)
[2022-07-21] MEDS: AMIODARONE 200 MG TAB GT SCH (08:27)
[2022-07-21] MEDS: SULFAMETH/TRIMETH 400/80MG 1 TAB GT SCH (08:28)
[2022-07-21] MEDS: PANTOPRAZOLE 40 MG INJ VIAL IVP SCH (08:28)
[2022-07-21] MEDS ORDERED: AMIO200T10 GT (10:07)
[2022-07-21] MEDS: THERAHONEY GEL 42.5 GM TP SCH (13:06)
[2022-07-21] MEDS: LORazepam 2 MG/ML VIAL IVP PRN (13:12)
--- NOTE | 2022-07-21 14:40 | NUR ---
CALLED MARIO LITITZ TO GIVE REPORT TO MARY. [phone]. PT GOING TO ROOM 119A.
--- NOTE | 2022-07-21 15:27 | NUR ---
[facility] AT BEDSIDE TO TRANSPORT PT.
--- NOTE | 2022-07-21 15:28 | NUR ---
HR 63, 118/66, SPO2 95%, RR 13.
--- NOTE | 2022-07-21 16:13 | NUR ---
07/21/22 RD FOLLOW UP COMPLETED PLEASE REFER TO NUTRITION ASSESSMENT UNDER CARE ACTIVITY FOR ESTIMATED NUTRITIONAL NEEDS. 1. RECOMMEND INCREASE GLUCERNA 1.2 GOAL RATE TO 7O ML/HR AND FWF 200 ML Q6H TOLERATED OR PER MD - CONTINUE LAWRENCE BID, WILL PROVIDE 160 KCAL AND 5 GRAMS PROTEIN DAILY - WITH LAWRENCE BID, PT WILL RECEIVE 1680 ML TOTAL VOLUME, 2176 KCAL, 105 GM OF PROTEIN, AND 2152 ML FREE WATER DAILY MEETING 90% OF ESTIMATED KCAL NEEDS AND 87% OF ESTIMATED PROTEIN NEEDS; ADEQUATE. 2. MONITOR FOR GI SYMPTOMS AND GASTRIC RESIDUALS 3. RD TO FOLLOW-UP 2-3 DAYS, HIGH RISK REVIEWED BY EDUARDA LOCKHART RD
== END 2022-07-21 15:30 | DRG 870 ==
LOC: MED 15:41 → MTU 17:41 → MIC 19:03
PROVIDERS: ADMIT Family Medicine; ATTEND Family Medicine
PROC: 5A1955Z Respiratory Ventilation, Greater than 96 Consecutive Hours (ICD-10-PCS; principal; 2022-07-08)
PROC: 5A12012 Performance of Cardiac Output, Single, Manual (ICD-10-PCS; 2022-07-08)
PROC: 0T9B70Z Drainage of Bladder with Drainage Device, Via Natural or Artificial Opening (ICD-10-PCS; 2022-07-08)
PROC: 02HV33Z Insertion of Infusion Device into Superior Vena Cava, Percutaneous Approach (ICD-10-PCS; 2022-07-09)
PROC: B548ZZA Ultrasonography of Superior Vena Cava, Guidance (ICD-10-PCS; 2022-07-09)
PROC: 30233N1 Transfusion of Nonautologous Red Blood Cells into Peripheral Vein, Percutaneous Approach (ICD-10-PCS; 2022-07-13)
DX: A41.9 Sepsis, unspecified organism (principal); R65.21 Severe sepsis with septic shock; J15.1 Pneumonia due to Pseudomonas; J96.21 Acute and chronic respiratory failure with hypoxia; I46.9 Cardiac arrest, cause unspecified; J44.0 Chronic obstructive pulmonary disease with (acute) lower respiratory infection; I47.20 Ventricular tachycardia, unspecified; Z99.11 Dependence on respirator [ventilator] status; N39.0 Urinary tract infection, site not specified; D64.9 Anemia, unspecified; I48.0 Paroxysmal atrial fibrillation; Y95 Nosocomial condition; R13.10 Dysphagia, unspecified; I49.9 Cardiac arrhythmia, unspecified; Z20.822 Contact with and (suspected) exposure to COVID-19; B96.89 Other specified bacterial agents as the cause of diseases classified elsewhere; Z79.1 Long term (current) use of non-steroidal anti-inflammatories (NSAID); Z79.899 Other long term (current) drug therapy; Z93.0 Tracheostomy status; Z93.1 Gastrostomy status; Z79.01 Long term (current) use of anticoagulants
CPT/HCPCS: 36415; 71045; 80048; 80053; 80202; 81001; 82272; 82948; 83605; 83735; 83880; 84100; 84484; 85025; 86704; 86706; 86708; 86709; 86803; 86886; 86900; 86901; 86920; 87040; 87070; 87081; 87086; 87205; 87340; 92950; 93005; 94003; 94640; 96365; 99291; C9113; J0282; J0696; J1644; J1940; J1956; J2060; J2185; J2250; J2270; J2370; J2405; J2543; J2704; J3010; J3370; J3490; J7030; J7042; J7060; P9016; Q0092